=== PATIENT | male | born 1955 | race Caucasian/White ===

== ENCOUNTER 2019-04-09 13:09 | Inpatient (IN) ==
[2019-04-09] MEDS ORDERED: NS 1,000 ML IV ONE ×2 (13:41→14:22)
--- NOTE | 2019-04-09 13:52 | Diag Imaging Result Doc PS360 ---
EXAM: CHEST-1 VIEW HISTORY: positive sepsis screen TECHNIQUE: Single view COMPARISON: 06/05/2017 FINDINGS: The lungs are well expanded. The heart is not enlarged. The vessels are not distended. There are no infiltrates. No effusion identified. IMPRESSION: No pneumonia Electronically signed by Denton Woodall 04/09/2019 1:50 PM
[2019-04-09 13:57] LABS: URINE SOURCE CLEAN CATCH
[2019-04-09 14:04] LABS: BILIRUBIN URINE NEGATIVE (NEGATIVE); BLOOD URINE NEGATIVE (NEGATIVE); COLOR YELLOW; GLUCOSE URINE NEGATIVE (NEGATIVE); KETONE URINE NEGATIVE (NEGATIVE); LEUKOCYTES URINE NEGATIVE (NEGATIVE); NITRITE URINE NEGATIVE (NEGATIVE); PROTEIN URINE NEGATIVE (NEGATIVE); SP GRAVITY URINE 1.018; TURBIDITY URINE CLEAR (CLEAR); UR EPITHELIAL CELLS <10 /HPF (<10); URINE BACTERIA NEGATIVE /HPF; URINE RBC <10 /HPF (<10); URINE WBC <10 /HPF (<10); UROBILINOGEN URINE NORMAL (NORMAL)
[2019-04-09 14:05] LABS: INR 1.06
[2019-04-09 14:06] LABS: BASO# 0.05 X1000 (0.0-0.2); BASO% 0.3 % (0.0-0.8); EOS# 8.91 X1000 (0.0-0.7); EOS% 45.1 % (0.0-10.0); HEMATOCRIT 44.6 % (42.0-52.0); HEMOGLOBIN 14.4 g/dL (14.0-18.0); IMM GRAN# 0.16 X1000 (0.0-0.04); IMM GRAN% 0.8 % (0.0-0.5); LYMPH% 11.6 % (20.5-51.1); MCH 30.3 PG (27-31); MCHC 32.3 g/dL (33-37); MCV 93.7 FL (81-99); MONO# 1.02 X1000 (0.11-0.59); MONO% 5.2 % (1.7-9.3); MPV 9.9 FL (7.4-10.4); NEUT# 7.31 X1000 (1.4-6.5); PLT 277 X1000 (130-400); PTT 26.8 Seconds (22.3-41.8); RBC 4.76 XMIL (4.7-6.1); RDW 13.3 % (11.5-14.5); WBC 19.75 X1000 (4.8-10.8)
[2019-04-09 14:29] LABS: EOS 42 % (1-10); LYMPHS 18 % (21-51); MONO 1 % (1-9); NRBC 1 % (0-0); SEGS 39 % (42-75)
[2019-04-09 14:36] LABS: AGAP 12; ALB/GLOB RATIO 1.4; ALBUMIN 3.9 g/dL (3.5-5.0); ALKALINE PHOSPHATASE 74 U/L (32-122); BUN 16 mg/dL (8-22); CALCIUM 9.1 mg/dL (8.8-10.2); CHLORIDE 101 mmol/L (98-107); CK PROFILE 60 U/L (24-204); COSMO 278; CREATININE 0.9 mg/dL (0.7-1.2); ESTIMATED GFR > 60; GLUCOSE 88 mg/dL (70-104); GOT 14 U/L (10-34); GPT 18 U/L (10-44); SODIUM 139 mmol/L (136-145); TCO2 26 mmol/L (25-35); TOTAL BILIRUBIN 0.36 mg/dL (0.20-1.00); TOTAL PROTEIN 6.7 g/dL (6.3-8.3)
--- NOTE | 2019-04-09 16:10 | Diag Imaging Result Doc PS360 ---
EXAM: CT ANGIOGRM PULMONARY ARTERIES HISTORY: chest pain TECHNIQUE: CT chest with intravenous contrast. Pulmonary arterial protocol with MIP images. COMPARISON: None. FINDINGS: Normal opacification of the pulmonary arteries and their branches. No aortic aneurysm or dissection. No cardiomegaly. Tiny pericardial effusion. Trace left pleural fluid. Scattered small and mildly prominent mediastinal and hilar nodes. There are scattered tiny patchy infiltrates bilaterally. Scattered granuloma. IMPRESSION: 1.No pulmonary emboli 2.Tiny patchy infiltrates 3.Small pericardial effusion and trace left effusion This exam was performed using automated exposure control, adjustment of mA or kV according to patient size, and/or use of iterative reconstruction technique. Electronically signed by Denton Woodall 04/09/2019 4:08 PM
--- NOTE | 2019-04-09 16:15 | EKG Report ---
Test Performed on : 04/09/2019 2:11:38 PM Test Reason : chest pain Blood Pressure : / mmHG Vent. Rate : 071 BPM Atrial Rate : 071 BPM P-R Int : 146 ms QRS Dur : 106 ms QT Int : 412 ms P-R-T Axes : 004 078 035 degrees QTc Int : 447 ms Normal sinus rhythm. Cannot rule out Anterior infarct , age undetermined Abnormal ECG No previous ECGs available Unconfirmed Result
--- NOTE | 2019-04-09 16:52 | PROVIDER DOCUMENTATION ---
This chart was entered by Irais Sotelo Scribe, acting as scribe for Case Cook DO. HPI-Respiratory General - General Chief Complaint: SEPSIS ALERT - D Stated Complaint: PNEUMONIA Time Seen by Provider: 04/09/19 13:22 Source: patient, family () Allergies/Adverse Reactions: Patient Allergies Allergy/AdvReac Type Severity Reaction Status Date / Time Penicillins Allergy RASH Verified 04/09/19 14:52 Home Medications: Home Medication List Medication Instructions Recorded Confirmed Last Taken Type Benzonatate 1 cap PO Q4H 04/09/19 04/09/19 Unknown History Cyanocobalamin/FA/Pyridoxine 1 ea PO DAILY 04/09/19 04/09/19 Unknown History [Foltx] Doxycycline Hyclate 100 mg PO BID 04/09/19 04/09/19 Unknown History Fluticasone Propionate 1 spr INTRANASAL DAILY 04/09/19 04/09/19 Unknown History Fluticasone/Umeclidin/Vilanter 1 ea INHALATION DAILY 04/09/19 04/09/19 Unknown History [Trelekristi Ellipta 100-62.5-25] Levofloxacin [Levaquin] 500 mg PO DAILY 04/09/19 04/09/19 Unknown History Magnesium Oxide [Magnesium] 500 mg PO DAILY 04/09/19 04/09/19 Unknown History Montelukast [Singulair] 10 mg PO DAILY 04/09/19 04/09/19 Unknown History Omeprazole 40 mg PO BID 04/09/19 04/09/19 Unknown History - History of Present Illness-Resp Nature of Presenting Problem: Pt is a 63 yowm brought into the ED by his for worsening symptoms of his pneumonia. Pt was diagnosed and treated for pneumonia and after the "shots wore off" he is feeling worse than before. Pt is complaining of cough, sinus drainage, pain in chest, dizziness, and upset stomach. Pt is alert and nontoxic in appearance. Quality of Pain: reports: pressure (upper chest) Onset/Duration: reports: 2 days ago Timing: reports: still present, getting worse (Pt states that when the shots wore off, he has gotten worse.) Cough Quality/Degree: reports: productive cough Episode Frequency: frequent episodes Current Respiratory Medication Therapy: Initiated see nurses note, Initiated albuterol/atrovent inhale Modifying Factors: improves with: albuterol inhaler. worse with: coughing Associated Symptoms: reports: chest pain/soreness (upper), cough, dizziness, nasal drainage, shortness of breath. denies: headache Similar Symptoms Previously?: Yes Recently seen or treated by another doctor?: Yes ( at PCP) Review of Systems - Adult - REVIEW OF SYSTEMS - ADULT Constitutional: reports: no symptoms reported Eyes: reports: no symptoms reported Ears, Nose, Mouth & Throat: reports: no symptoms reported Cardiovascular: reports: see HPI, chest pain. denies: edema, syncope Respiratory: reports: cough, shortness of breath Gastrointestinal: reports: abdominal pain (epigastric, high right under ribs), vomiting Genitourinary: reports: no symptoms reported Musculoskeletal: reports: no symptoms reported Integumentary: reports: no symptoms reported Neurological: reports: see HPI, dizziness/vertigo. denies: syncope Psychiatric: reports: no symptoms reported Endocrine: reports: no symptoms reported Hematologic/Lymphatic: reports: no symptoms reported Allergic/Immunologic: reports: no symptoms reported All Other Systems: Reviewed and Negative Past History - Adult - PAST MEDICAL HISTORY-ADULT Review of Records: reports: Old Records Reviewed, Nursing Assessment Review, Medications Reviewed, Social history reviewed & non-contributory. Major Childhood Illnesses: reports: denies history Cardiovascular: reports: denies history Respiratory: reports: denies history Gastrointestinal: reports: denies history Obstetrical/Gynecological: reports: denies history Genitourinary: reports: denies history Musculoskeletal: reports: denies history Neurological: reports: denies history Psychiatric: reports: denies history Endocrine/Immune: reports: denies history Other Conditions: reports: denies history - PRIOR SURGERIES/PROCEDURES Surgical/Procedure History: reports: reviewed, not pertinent, cholecystectomy - IMMUNIZATION STATUS Childhood Immunizations: See Nurse Assessment Flu Vaccine: See Nurse Assessment - FAMILY HISTORY Family History: reviewed, not pertinent - SOCIAL HISTORY Smoking: denies Substance Use: denies Living Situation: family () Physical Exam-General - PHYSICAL EXAM-ADULT Initial Vital Signs Reviewed: Yes (HR 92, Resp 28, O2 91 RA) - CONSTITUTIONAL General Appearance: alert, no apparent distress - EYES Eyes: PERRL/EOMI - HEAD, EARS, NOSE, MOUTH & THROAT HENMT: normal ENT inspection, other (mouth dry) - NECK Neck: non-tender, full range of motion - RESPIRATORY Respiratory: crackles (at bases) - CARDIOVASCULAR Cardiovascular: no edema, tachycardia - GASTROINTESTINAL (ABDOMEN) Abdominal Exam: normal bowel sounds, non tender, soft - MUSCULOSKELETAL Back Exam: no CVA tenderness, no vertebral tenderness Extremity: non-tender, normal gait - SKIN Integumentary: normal color, normal turgor, warm/dry - PSYCHIATRIC Psych/Mental Status: normal mood/affect, normal thought content, normal thought process, oriented x 3 Progress - PLAN OF CARE/RESULTS Progress/Plan/Lab Results: Vital Signs - 8 hr 04/09/19 13:14 04/09/19 13:31 04/09/19 15:00 Temperature 97.8 F Pulse Rate 92 H 82 73 Respiratory Rate 28 H 21 21 Blood Pressure 128/88 137/86 O2 Sat by Pulse Oximetry 91 L 92 L 95 04/09/19 15:49 04/09/19 16:02 Temperature Pulse Rate 68 67 Respiratory Rate 18 21 Blood Pressure 125/80 118/75 O2 Sat by Pulse Oximetry 92 L 94 L Laboratory Results - last 24 hr 04/09/19 04/09/19 04/09/19 13:45 13:45 13:45 WBC 19.75 H RBC 4.76 Hgb 14.4 Hct 44.6 MCV 93.7 MCH 30.3 MCHC 32.3 L RDW Std Deviation 13.3 Plt Count 277 MPV 9.9 Immature Gran % (Auto) 0.8 H Neut % (Auto) 37.0 L Lymph % (Auto) 11.6 L [place] % (Auto) 5.2 Eos % (Auto) 45.1 H Baso % (Auto) 0.3 Immature Gran # (Auto) 0.16 H Neut # (Auto) 7.31 H Lymph # (Auto) 2.30 [place] # (Auto) 1.02 H Eos # (Auto) 8.91 H Baso # (Auto) 0.05 Segmented Neutrophils 39 L Lymphocytes 18 L Monocytes 1 Eosinophils 42 H Nucleated RBCs 1 H Pathologist Review PT INR PTT (Actin FS) Sodium 139 Potassium 4.0 Chloride 101 Carbon Dioxide 26 Anion Gap 12 BUN 16 Creatinine 0.9 Estimated GFR/1.73 m2 > 60 BUN/Creatinine Ratio 18 Glucose 88 Calculated Osmolality 278 Calcium 9.1 Total Bilirubin 0.36 AST 14 ALT 18 Alkaline Phosphatase 74 Creatine Kinase 60 Troponin T Total Protein 6.7 Albumin 3.9 Globulin 2.8 Albumin/Globulin Ratio 1.4 Plasma Lactate 0.7 Urine Source Urine Color Urine Turbidity Urine pH Ur Specific [place] Urine Protein Ur Glucose (Stick) Ur Ketones (Stick) Urine Blood Urine Nitrite Urine Bilirubin Urobilinogen Dipstick Urine Leukocytes Urine WBC (Auto) Urine RBC (Auto) U Epithel Cells (Auto) Urine Bacteria (Auto) 04/09/19 04/09/19 04/09/19 13:45 13:45 13:45 WBC RBC Hgb Hct MCV MCH MCHC RDW Std Deviation Plt Count MPV Immature Gran % (Auto) Neut % (Auto) Lymph % (Auto) [place] % (Auto) Eos % (Auto) Baso % (Auto) Immature Gran # (Auto) Neut # (Auto) Lymph # (Auto) [place] # (Auto) Eos # (Auto) Baso # (Auto) Segmented Neutrophils Lymphocytes Monocytes Eosinophils Nucleated RBCs Pathologist Review PT 14.0 INR 1.06 PTT (Actin FS) 26.8 Sodium Potassium Chloride Carbon Dioxide Anion Gap BUN Creatinine Estimated GFR/1.73 m2 BUN/Creatinine Ratio Glucose Calculated Osmolality Calcium Total Bilirubin AST ALT Alkaline Phosphatase Creatine Kinase Troponin T < 0.010 Total Protein Albumin Globulin Albumin/Globulin Ratio Plasma Lactate Urine Source CLEAN CATCH Urine Color YELLOW Urine Turbidity CLEAR Urine pH 6.0 Ur Specific [place] 1.018 Urine Protein NEGATIVE Ur Glucose (Stick) NEGATIVE Ur Ketones (Stick) NEGATIVE Urine Blood NEGATIVE Urine Nitrite NEGATIVE Urine Bilirubin NEGATIVE Urobilinogen Dipstick NORMAL Urine Leukocytes NEGATIVE Urine WBC (Auto) <10 Urine RBC (Auto) <10 U Epithel Cells (Auto) <10 Urine Bacteria (Auto) NEGATIVE Orders Category Date Time Status Cardiac Monitoring DIRECTED Care 04/09/19 13:16 Active IV Insertion ORDERED Care 04/09/19 13:16 Completed Notify MD of + Sepsis Screen NOW Care 04/09/19 13:16 Active Notify Physician As Ordered Care 04/09/19 13:16 Active CHEST-1 VIEW [RAD] Stat Exams 04/09/19 13:16 Completed CTA [CT ANGIOGRM PULMONARY ARTERIES] [CT] Stat Exams 04/09/19 14:31 Completed BLOOD CULTURE [BLDCUL] Stat Lab 04/09/19 14:05 Results CBC WITH DIFF [HEME] Stat Lab 04/09/19 13:45 Completed CK PROFILE [SP CHEM] Stat Lab 04/09/19 13:45 Completed COMPREHENSIVE METABOLIC PANEL [CHEM] Stat Lab 04/09/19 13:45 Completed LACTATE, PLASMA [CHEM] Lab 04/09/19 13:45 Completed LACTATE, PLASMA [CHEM] Lab 04/09/19 16:30 Uncollected LACTATE, PLASMA [CHEM] Lab 04/09/19 19:30 Uncollected PROTIME WITH INR [COAG] Stat Lab 04/09/19 13:45 Completed PTT [COAG] Stat Lab 04/09/19 13:45 Completed TROPONIN T Stat Lab 04/09/19 13:45 Completed URINALYSIS W/POSS RFLX CULT [URINALYSIS] Stat Lab 04/09/19 13:45 Completed 0.9% Sodium Chloride Inj [Ns] 1,000 ml Med 04/09/19 13:41 Discontinued IV 999 mls/hr 0.9% Sodium Chloride Inj [Ns] 1,000 ml Med 04/09/19 14:22 Discontinued IV 999 mls/hr Oxygen Device Stat Oth 04/09/19 13:16 Active EKG [EKG] Stat Ther 04/09/19 13:40 Draft Transfer/Admit Order [TRANSFER] Routine Transfer 04/09/19 16:35 Ordered Result Diagrams: 04/09/19 13:45 04/09/19 13:45 - EKG 1 Time of EKG reading by physician:: 14:12 EKG Read and Signed by:: Case Cook EKG Interpretation (*Must complete 3 of following elements*): Abnormal Rate: 71 Rhythm: NSR [place]: normal QRS: normal IA Interval: normal ST Wave: normal Comments: Cannot rule out Anterior infarct, age undetermined - XRAY 1 XRAY Study: Chest Impression: See EMR Report (EXAM: CHEST-1 VIEW HISTORY: positive sepsis screen TECHNIQUE: Single view COMPARISON: 06/05/2017 FINDINGS: The lungs are well expanded. The heart is not enlarged. The vessels are not distended. There are no infiltrates. No effusion identified. IMPRESSION: No pneumonia Electronically signed by Denton Woodall 04/09/2019 1:50 PM 04/09/19 1350 Interpreting Physician: Denton Woodall MD Dictated Date/Time: 04/09/19 1340 cc: Case Cook DO; Zeus Leigh MD) - CT/MRI 1 CT Study: Angiogram Impression: See EMR Report (EXAM: CT ANGIOGRM PULMONARY ARTERIES HISTORY: chest pain TECHNIQUE: CT chest with intravenous contrast. Pulmonary arterial protocol with MIP images. COMPARISON: None. FINDINGS: Normal opacification of the pulmonary arteries and their branches. No aortic aneurysm or dissection. No cardiomegaly. Tiny pericardial effusion. Trace left pleural fluid. Scattered small and mildly prominent mediastinal and hilar nodes. There are scattered tiny patchy infiltrates bilaterally. Scattered granuloma. IMPRESSION: 1.No pulmonary emboli 2.Tiny patchy infiltrates 3.Small pericardial effusion and trace left effusion This exam was performed using automated exposure control, adjustment of mA or kV according to patient size, and/or use of iterative reconstruction technique. Electronically signed by Denton Woodall 04/09/2019 4:08 PM 04/09/19 1601 Interpreting Physician: Denton Woodall MD Dictated Date/Time: 04/09/19 1606 cc: Case Cook DO; Zeus Leigh MD) - CONSULTS/PCP/HOSPITALIST Notification #1 *Consult/PCP/Hospitalist*: Rosemary Time Discussed: 16:33 (admit to Dr. Morton) Consult Disposition: Will see in ED Departure - Departure Date of Disposition Decision: 04/09/19 Time of Disposition Decision: 16:50 DIAGNOSIS: Pneumonia Qualifiers: Pneumonia type: due to unspecified organism Laterality: bilateral Lung location: lower lobe of lung Qualified Code(s): J18.1 - Lobar pneumonia, unspecified organism Disposition: ADMITTED INPATIENT 09 Certified Medical Emergency: Emergent Condition: Stable Referrals and Follow-Ups: Zeus Leigh MD [Primary Care Provider] - - Critical Care Note This patient required my direct & personal management of CC.: Yes Attestation - Physician/ DANIKA Attestation Patient care was provided by Advanced Practice Provider:: No The physician spent face to face time with patient:: Yes Advanced Practice Provider documentation review:: Supervising physician onsite and consulted in the evaluation and care of this patient. The physician did have a face to face encounter with the patient. This chart was documented by the indicated scribe, (Irais Sotelo Scribe) and accurately reflects the services I performed and decisions made by , Joyce,Case E., DO, as attested by the provider's signature.
[2019-04-09] MEDS ORDERED: ZOFRAN IV PRN (18:30)
[2019-04-09] MEDS ORDERED: ROCEPHIN 1 GM in NS 50 ML IV SCH (18:30)
[2019-04-09] MEDS ORDERED: ZITHROMAX 500 MG/NS 500 MG/250 ML IVPB IV SCH (18:30)
[2019-04-09] MEDS ORDERED: TYLENOL PO PRN (18:30)
[2019-04-09] MEDS ORDERED: DUONEB (A & A) INH SCH (19:30)
[2019-04-09] MEDS: ROCEPHIN 1 GM in NS 50 ML IV SCH (21:10)
[2019-04-09] MEDS: ZITHROMAX PO SCH (21:10)
[2019-04-09] MEDS: SOLU-MEDROL IV SCH (21:10)
[2019-04-09] MEDS: NS 1,000 ML IV SCH (21:10)
[2019-04-09] MEDS: TESSALON PO SCH (21:11)
[2019-04-09] MEDS: PRILOSEC PO SCH (21:11)
--- NOTE | 2019-04-09 21:24 | HISTORY AND PHYSICAL ---
PRIMARY CARE PHYSICIAN: Dr. Leigh. CHIEF COMPLAINT: Was diagnosed with pneumonia this past by his primary care physician, placed on antibiotics and does not feel that he has improved. Still having a productive cough, wheezing, shortness of breath, sinus drainage, so he came to the emergency room for evaluation. HISTORY OF PRESENTING ILLNESS: This is a 63-year-old male who presents to [facility] stating that he was diagnosed on this past with a pneumonia and was placed on antibiotics has been taking the antibiotics as prescribed but is feeling worse. Continues to have a productive cough, sinus drainage, shortness of breath, wheezing. His O2 saturation on arrival was 91%. His white blood cell count was 19.75. His chest x-ray showed no pneumonia but we did a pulmonary arteriogram that showed no pulmonary emboli and tiny scattered patchy infiltrates bilaterally so he will be admitted for further evaluation and treatment for failed outpatient treatment. PAST MEDICAL HISTORY: None. PAST SURGICAL HISTORY: Cholecystectomy. He has also had a right knee ACL repair and lymph node removal to his right groin. FAMILY HISTORY: Reviewed and noncontributory. SOCIAL HISTORY: Currently lives with his . Denies any tobacco, alcohol or illicit drug use. ALLERGIES: To penicillin. HOME MEDICATIONS: He takes benzonatate 100 mg p.o. q.4 hours, Foltx 1 p.o. daily, doxycycline 100 mg p.o. b.i.d. will be held, fluconazole 1 spray nasally daily, Trelegy Ellipta 100/62.5/25 one inhalation daily, Levaquin 500 mg p.o. daily will be held, magnesium oxide 500 mg p.o. daily, Singulair 10 mg p.o. daily and omeprazole 40 mg p.o. b.i.d. LABORATORY DATA: Showed a white blood cell count of 19.75, hemoglobin 14.4, hematocrit 44.6, platelets 277,000, PT and INR of 14 and 1.06. Sodium 139, potassium 4, chloride 101, CO2 26, BUN of 16, creatinine 0.9, glucose 88. Cardiac enzymes were negative. Plasma lactate of 0.7. Urinalysis was negative. Chest x-ray showed no pneumonia. Pulmonary arteriogram showed no pulmonary emboli, tiny patchy infiltrates bilaterally and small pericardial effusion and trace left effusion. REVIEW OF SYSTEMS: He denied any fever. He has had chills, productive cough, wheezing, sinus drainage, dizziness, shortness of breath, denied any abdominal pain, constipation, diarrhea, burning or hurting with urination. PHYSICAL EXAMINATION: On arrival he had a temperature of 97.8 degrees, pulse 92, respirations 28, blood pressure 128/88, saturating 91% on room air, did drop to 89% on room air when I was in the room, placed him on O2 via nasal cannula and he came up to 93% on the 2 L via nasal cannula. HEENT: Normocephalic, atraumatic. Normal ENT inspection. Oropharynx and nares are clear. Pupils are equal, round, reactive to light, accommodation. Extraocular movements are intact. NECK: Normal inspection, normal range of motion. LUNGS: With wheezing and crackles throughout posterior lung hdez that are scattered. Equal lung expansion, chest wall movement noted. O2 via nasal cannula currently in use. HEART: Regular rate and rhythm. No murmurs, rubs, or gallops. ABDOMEN: Soft, nontender, nondistended. Bowel sounds are present x4 quadrants. MUSCULOSKELETAL: He has 5/5 strength x4 extremities. NEUROLOGICAL: The cranial nerves 2-12 appear grossly intact. ASSESSMENT: 1. Bilateral patchy pneumonia with failed outpatient treatment. 2. Leukocytosis. 3. Dyspnea. OUR PLAN: He will be admitted to the medical unit placed on telemetry, incentive spirometry, turn, cough and deep breathe q.2, will give him Rocephin 1 gram IV q.24, azithromycin 500 IV q.24, DuoNeb q.4 hours, normal saline at 75 mL an hour, recheck CBC, BMP in the a.m., place on SCDs for DVT prophylaxis, further orders after seen by attending. Dictated by JUSTICE Mcgee for Rivas Morton MD cc: JUSTICE Mcgee MD Dr. Gillespie I agree with most components of history, physical, assessment and plan. A separate addendum has been dictated. [facility]
--- NOTE | 2019-04-09 22:48 | PROGRESS NOTE ---
DATE: 04/09/2019 INTERVAL HISTORY: Mr. High is a 63-year-old man with past medical history of chronic rhinosinusitis, chronic venous insufficiency, status post surgery, distant smoking history where he smoked only for 5 years and quit 40 years ago, sinus surgery in the past, cholecystectomy, who comes in with chief complaints of worsening cough with shortness of breath. Apparently, patient has been having symptoms of sinus drainage causing cough since about the last 2 months and he has been put on at least 4 to 5 antibiotic courses without any improvement. During this period he had seen his regular physician, ENT physician and senior energy market coordinator and he has been on Trilogy inhalers, multiple courses of antibiotics, fluticasone nasal spray without any improvement. His cough and shortness of breath started getting significantly worse in the last 3 days, so he decided to come to the emergency room. In the emergency room, he was found to have leukocytosis with pronounced eosinophilia. Normal electrolytes. SUBJECTIVE: He denies known history of asthma. He states he was tested for flu 4 days ago, does not know the result. He also has chronic lower extremity rash. PHYSICAL EXAMINATION: Vital signs: Temperature of 97.8 degrees, pulse 67, respiratory 18, blood pressure 125/80, he is saturating 92% on 2 L nasal cannula. HEENT: He is not in acute distress. Oral cavity is moist. No tonsillitis or pharyngeal exudate. Nasal cavity has edematous, pale appearing nasal mucosa over turbinates. Lungs: He has bilateral end-expiratory wheezes and inspiratory crackles. Cardiovascular: S1, S2 normal. No murmur or gallop. Abdomen: Obese, soft, nontender. Extremities: No lower extremity edema. He has bilateral varicosities. He also has old appearing rash in bilateral lower extremities. The patient states that has been present for years, more pronounced on right lower extremity. LABS: Suggestive of leukocytosis with 45% eosinophilia. Normal electrolytes. IMAGING: Pulmonary arteriogram performed had no pulmonary emboli, tiny patchy infiltrate, small pericardial effusion, trace left effusion. ASSESSMENT AND PLAN: Bilateral lung infiltrate with history of chronic rhinosinusitis with peripheral eosinophilia. On exam, patient also has wheeze, though he does not have a known diagnosis of asthma. Differential includes eosinophilic pneumonia, eosinophilic granulomatosis with polyangiitis, bacterial pneumonia, allergic bronchopulmonary aspergillosis, others. I will get antinuclear antibody, ANCA, urine Streptococcus Legionella antigen, sputum culture. I will start him on intravenous ceftriaxone, azithromycin, inhaled bronchodilators, intravenous steroids and follow up the results. I will admit patient to the hospital and will consider consulting Pulmonology tomorrow. Plan of care discussed with the patient and his at bedside, their questions been answered. cc: Rivas Morton MD
[2019-04-09] MEDS: ALBUTEROL NEB INH SCH (23:21)
[2019-04-10] MEDS: TESSALON PO SCH ×6 (00:42→21:33)
[2019-04-10 07:34] LABS: BASO# 0.02 X1000 (0.0-0.2); BASO% 0.2 % (0.0-0.8); EOS% 5.8 % (0.0-10.0); HEMATOCRIT 43.9 % (42.0-52.0); HEMOGLOBIN 14.1 g/dL (14.0-18.0); IMM GRAN# 0.13 X1000 (0.0-0.04); IMM GRAN% 1.3 % (0.0-0.5); LYMPH# 1.22 X1000 (1.2-3.4); LYMPH% 11.8 % (20.5-51.1); MCH 30.3 PG (27-31); MCHC 32.1 g/dL (33-37); MCV 94.2 FL (81-99); MONO# 0.43 X1000 (0.11-0.59); MONO% 4.2 % (1.7-9.3); MPV 9.8 FL (7.4-10.4); NEUT# 7.94 X1000 (1.4-6.5); NEUT% 76.7 % (42.2-75.2); PLT 274 X1000 (130-400); RBC 4.66 XMIL (4.7-6.1); RDW 13.2 % (11.5-14.5); WBC 10.34 X1000 (4.8-10.8)
[2019-04-10 07:49] LABS: AGAP 14; BUN 12 mg/dL (8-22); CALCIUM 9.2 mg/dL (8.8-10.2); CHLORIDE 102 mmol/L (98-107); COSMO 283; CREATININE 0.8 mg/dL (0.7-1.2); ESTIMATED GFR > 60; GLUCOSE 131 mg/dL (70-104); POTASSIUM 4.6 mmol/L (3.5-5.1); SODIUM 141 mmol/L (136-145); TCO2 25 mmol/L (25-35)
[2019-04-10] MEDS: ALBUTEROL NEB INH SCH ×3 (08:34→15:31)
[2019-04-10] MEDS ORDERED: MAGNESIUM OXIDE 500 MG PO SCH (09:00)
[2019-04-10] MEDS: ZITHROMAX PO SCH (10:09)
[2019-04-10] MEDS: SINGULAIR PO SCH (10:09)
[2019-04-10] MEDS: FOLTX PO SCH (10:09)
[2019-04-10] MEDS: PRILOSEC PO SCH ×2 (10:09→21:33)
[2019-04-10] MEDS: NS 1,000 ML IV SCH (10:20)
--- NOTE | 2019-04-10 12:43 | PROVIDER PROGRESS NOTE ---
Progress Note Pulmonary additional note: The CT scan findings are minimal. I understand the elevation of eosinophils, however doubt eosinophilic pneumonia. Future course will determine that further.
[2019-04-10] MEDS: FLONASE NAS SCH (12:51)
--- NOTE | 2019-04-10 14:54 | PROGRESS NOTE ---
DATE: 04/10/2019 INTERVAL HISTORY: No acute events overnight. SUBJECTIVE: Mr. High is feeling better. He says his sinus congestion and cough are better. We discussed about improving lab findings, exam findings, and I answered all of his questions. VITAL SIGNS: Temperature of 98.3 degrees, pulse 80, respiratory rate 15, blood pressure 140/90, saturating 95% on 2 L nasal cannula. PHYSICAL EXAMINATION: General: Not in acute distress. HEENT: Oral cavity is moist. Lungs: Air entry bilaterally equal. No wheeze or rhonchi. Inspiratory crackles bilateral infrascapular region. Cardiovascular: S1, S2 normal. Regular. No murmur, rub, or gallop. Abdomen: Soft, nontender. Extremities: No lower extremity edema. He has bilateral superficial venous varicosities of the legs. He also has a rash affecting bilateral lower extremities, more pronounced on the right side. LABS: Resolution of leukocytosis. Improvement in eosinophil count from 45 to 5%. Normal hemoglobin. Normal platelet count. Normal electrolytes. MICROBIOLOGY: Blood culture is in the lab. Influenza screen is not back yet. IMAGING: No new imaging. ASSESSMENT AND PLAN: 1. Bilateral lung infiltrate with history of chronic rhinosinusitis with peripheral eosinophilia. Continue intravenous ceftriaxone, azithromycin, and intravenous steroids. I will follow up with final blood culture, sputum culture, ANCA, and urine antigen results. Pulmonology team recommendations appreciated. 2. Wheezing on examination and chronic rhinosinusitis. Continue inhaled bronchodilators, inhaled steroids, intravenous steroids, home montelukast. 3. Bilateral lower extremity rash. He is already on intravenous steroids. He previously had a biopsy of the skin lesion of his right foot which according to him suggested eczema; the details of which are not available at the moment. 4. Disposition. I will monitor the patient on the medical floor. Plan of care discussed with him. His questions have been answered. cc: Rivas Morton MD
[2019-04-10] MEDS: ROCEPHIN 1 GM in NS 50 ML IV SCH (17:15)
[2019-04-10] MEDS: SOLU-MEDROL IV SCH (17:15)
--- NOTE | 2019-04-10 18:51 | CONSULTATION ---
DATE OF CONSULTATION: 04/10/2019 REQUESTING PROVIDER: Dr. Rivas Morton. REASON FOR CONSULTATION: Chronic rhinosinusitis and eosinophilia rash. HISTORY OF PRESENT ILLNESS: This is a 63-year-old male with outpatient recently diagnosed pneumonia. He has no significant medical history. He presented to the ER yesterday morning with worsening symptoms of pneumonia despite of ongoing outpatient antibiotic therapy. Initial CT angiogram pulmonary arteries revealed normal opacities of the pulmonary arteries and their branches, tiny pericardial effusion and chest left pleural fluid, scattered all small and mildly prominent mediastinal and hilar nodes with scattered tiny patchy infiltrates bilaterally and scattered granuloma, so he has been admitted to the medical floor for further evaluation and management. Patient currently is sitting on the edge of the bed with no acute distress noted. He is on nasal cannula at 3 L. He reports intermittent severe coughing spell about every three to four hours with large amount of thin sputum which makes patient feel choking at times, but patient reported after that he feels a lot better. He had no fever all night and his oxygen saturation stayed in the low 90s. He reports sinus drainage and some chest soreness, dizziness, but no fever, chills, sore throat, wheezing, nausea, vomiting, bowel habit change, urination discomfort or palpitation. He did not notice any weight change recently. He did have some headache at times, which is worsening with cough. PAST MEDICAL AND SURGICAL HISTORY: Status post cholecystectomy, right knee ACL repair and right groin lymph node removal. SOCIAL HISTORY: Patient lives at home with his . He has a remote smoking history back to 40 years ago for about five years. He denies any history of alcohol or illicit drug use. The patient reported that he lives in a house with water leaking at the roof at times and both him and his have chronic sinus issues for over three years. They are not sure if there is any mold inside the house. They did see some green or faye colored stuff growing in some places inside the house. FAMILY HISTORY: Unknown. ALLERGIES: Penicillins. REVIEW OF SYSTEMS: A 10-point review of systems was conducted and the pertinent is listed within the HPI, otherwise noncontributory. PHYSICAL EXAMINATION: Vital Signs: Temperature 97.9, blood pressure 140/82, pulse 72, respiratory rate 16, oxygen saturation 93% on nasal cannula at 3 L. General: Obese. Sitting on the edge of the bed with no acute distress noted. HEENT: Atraumatic, normocephalic. Trachea midline. Mucosa pink and moist. Respiratory: Even and unlabored. Symmetrical excursion. Auscultation revealed diminished breathing sounds bibasilarly and only inspiratory crackles bilaterally. No wheezing noted at this time. Cardiovascular: Regular rate and rhythm. Gastrointestinal: Soft, mildly distended, nontender. Normoactive bowel sounds in all four quadrants. Extremities: No pedal edema. No cyanosis. Has significant varicosities on BLE. Has one spot of eczema around right foot. Has several scratches on the bilateral lower extremities. Dorsalis pedis diminished bilaterally. Neurologic: Alert oriented x4. Speech fluent. Follows commands. LAB DATA: White blood cells 10.34, hemoglobin 14.1, hematocrit 43.9, platelet 274,000. Sodium 141, potassium 4.6, chloride 102, carbon dioxide 25, BUN 12, creatinine 0.8, glucose 131. IMAGING DATA: See CT PA results on HPI. ASSESSMENT: This is a 63-year-old male with no significant medical history except recently outpatient diagnosed pneumonia. He has been admitted to the medical floor since yesterday with bilateral patchy pneumonia with failed outpatient treatment. 1. Acute hypoxic respiratory failure. 2. Bilateral patchy pneumonia. 3. Small pericardial effusion and trace left effusion. 4. Rule out pulmonary emboli. PLAN: 1. Continue supplemental oxygen as needed. 2. Continue antibiotic, steroid, and bronchodilators. 3. Follow up with sputum culture and blood culture. Check ABG and chest x-ray if indicated. 4. Further recommendations pending hospital course. Thank you for the courtesy of this consult. Dictated by JUSTICE Ibarra for Satya Cullen MD cc: JUSTICE Ibarra MD [facility]
[2019-04-11] MEDS: TESSALON PO SCH ×6 (00:13→20:44)
[2019-04-11] MEDS: FLONASE NAS SCH (08:49)
[2019-04-11] MEDS: NON-FORMULARY MED (Fluticasone/Umeclidin/Vilanter [Trelegy Ellipta 100-62.5-25] 0 EA) inhalation SCH ×3 (08:49→11:35)
[2019-04-11] MEDS: SINGULAIR PO SCH (08:49)
[2019-04-11] MEDS: PRILOSEC PO SCH ×2 (08:49→20:44)
[2019-04-11] MEDS: ZITHROMAX PO SCH (08:50)
[2019-04-11] MEDS: FOLTX PO SCH (08:50)
[2019-04-11] MEDS: ALBUTEROL NEB INH SCH (08:54)
[2019-04-11] MEDS: ROCEPHIN 1 GM in NS 50 ML IV SCH (17:32)
[2019-04-11] MEDS: SOLU-MEDROL IV SCH (17:32)
--- NOTE | 2019-04-11 20:02 | PROGRESS NOTE ---
DATE: 04/11/2019 INTERVAL HISTORY: No acute events overnight. SUBJECTIVE: Mr. High denies new complaints. He states he is feeling better, though intermittently he feels his sinuses are draining, irritating his throat, and it may be going inside his lungs, which makes him choke up and he has to sit up. His is at bedside. We had a long discussion about outpatient followup with pulmonology, asthma testing, pulmonary function testing, allergy testing. We discussed about pending blood tests. PHYSICAL EXAMINATION: Vital Signs: Temperature 98.3 degrees, pulse 77, respiratory rate 18, blood pressure 130/80, saturating 93%. Currently, he is on room air. PHYSICAL EXAMINATION: General: Not in any acute distress. HEENT: Oral cavity is moist. There is some congestion in soft palate because of his it looks like coughing. His nasal cavity has edematous turbinates. Lungs: Air entry bilaterally equal. No wheeze or rhonchi. He does have poor inspiratory effort. Mild crackles, infrascapular region. Cardiac: S1 and S2 normal. No murmur or gallop. Abdomen: Soft and nontender. Extremities: He has bilateral lower extremity rash, more pronounced on the right lower extremity. He previously also had surgery for varicose veins. LABS: No CBC or BMP today. ASSESSMENT AND PLAN: 1. Bilateral lung infiltrate with history of chronic rhinosinusitis with peripheral eosinophilia on presentation and bilateral lower extremity rash. Continue intravenous ceftriaxone, azithromycin, and intravenous steroids. Follow up final results of blood cultures, sputum culture, ANCA, urine antigen results. Pulmonology team recommendations appreciated. I will keep him on inhaled bronchodilators, fluticasone nasal spray, montelukast. He was previously told by a want ad supervisor that he did not have lupus. 2. Wheezing on presentation. This could be asthma, even though he was never diagnosed with it. He will need outpatient pulmonology followup. I will continue inhaled bronchodilators and intravenous steroids. 3. Bilateral lower extremity rash, currently stable. He previously had a biopsy of the rash outpatient and was told he had some kind of eczema. DISPOSITION: I am waiting for some of the blood tests including final results of the urine antigens, ANCA, YAA, and accordingly, I will anticipate discharge in next 24 hours. Plan of care discussed with him and his . Their questions have been answered. cc: Rivas Morton MD MTDD
--- NOTE | 2019-04-11 20:24 | PULMONOLOGY PROGRESS NOTE ---
DATE: 04/11/2019 SUBJECTIVE: The patient is awake, alert, and conversant. He has chronic nasal congestion. He reports he has multiple episodes of wheezing requiring antibiotics each year, frequently associated with his sinusitis. OBJECTIVE: Vital Signs: The patient has been afebrile for the last 24 hours. BP 123/80, heart rate 64, respiratory rate 18, oxygen saturation 97% on 2 L per nasal cannula. HEENT: Pupils are equal and reactive. Oropharynx is clear. Nasal passages have increased thick secretions. Neck: Supple. Chest: Reveals scattered wheezing bilaterally. Cardiac exam: S1, S2. Abdomen: Obese and soft. Extremities: Reveal trace edema. LABORATORIES: No chemistries or CBC today. IMPRESSION: A 63-year-old with: 1. Chronic rhinosinusitis. 2. Hypereosinophilia. 3. Frequent episodes of wheezing and bronchospasm. 4. Prior history of hives. 5. Acute hypoxemic respiratory failure. 6. Abnormal CT scan with pulmonary infiltrates. PLAN: 1. Continue antibiotics pending results of sputum cultures. 2. Continue steroids. Could transition to prednisone tomorrow (suggest a 30 mg daily dose with subsequent taper). 3. Check an IgE level. 4. Follow up with Pulmonary as an outpatient. He is currently being seen by Dr. Cullen and has been seen by Dr. Jae Meyer in [place] earlier this year. cc: Jordan Kothari MD
[2019-04-12] MEDS: TESSALON PO SCH ×5 (00:46→17:39)
[2019-04-12 07:39] LABS: BASO# 0.02 X1000 (0.0-0.2); BASO% 0.2 % (0.0-0.8); EOS# 0.53 X1000 (0.0-0.7); EOS% 4.3 % (0.0-10.0); HEMATOCRIT 45.4 % (42.0-52.0); HEMOGLOBIN 14.6 g/dL (14.0-18.0); IMM GRAN# 0.07 X1000 (0.0-0.04); IMM GRAN% 0.6 % (0.0-0.5); LYMPH% 12.2 % (20.5-51.1); MCH 30.4 PG (27-31); MCHC 32.2 g/dL (33-37); MCV 94.4 FL (81-99); MONO# 0.81 X1000 (0.11-0.59); MONO% 6.6 % (1.7-9.3); MPV 9.9 FL (7.4-10.4); NEUT# 9.32 X1000 (1.4-6.5); NEUT% 76.1 % (42.2-75.2); PLT 308 X1000 (130-400); RBC 4.81 XMIL (4.7-6.1); RDW 13.2 % (11.5-14.5); WBC 12.25 X1000 (4.8-10.8)
[2019-04-12 08:07] LABS: AGAP 12; BUN 18 mg/dL (8-22); CALCIUM 9.4 mg/dL (8.8-10.2); CHLORIDE 102 mmol/L (98-107); COSMO 287; CREATININE 0.8 mg/dL (0.7-1.2); ESTIMATED GFR > 60; GLUCOSE 94 mg/dL (70-104); POTASSIUM 4.6 mmol/L (3.5-5.1); SODIUM 143 mmol/L (136-145); TCO2 29 mmol/L (25-35)
[2019-04-12] MEDS: NON-FORMULARY MED (Fluticasone/Umeclidin/Vilanter [Trelegy Ellipta 100-62.5-25] 0 EA) inhalation SCH (10:07)
[2019-04-12] MEDS: FOLTX PO SCH (10:07)
[2019-04-12] MEDS: SINGULAIR PO SCH (10:07)
[2019-04-12] MEDS: PRILOSEC PO SCH ×2 (10:07→20:39)
[2019-04-12] MEDS: FLONASE NAS SCH (10:08)
[2019-04-12] MEDS: ZITHROMAX PO SCH (10:08)
[2019-04-12] MEDS: ALBUTEROL NEB INH SCH ×2 (10:54→19:41)
[2019-04-12 14:23] LABS: ANTINEUTROPHIL CYTOPLASMIC AB SEE COMMENTS
--- NOTE | 2019-04-12 17:21 | PULMONOLOGY PROGRESS NOTE ---
DATE: 04/12/2019 SUBJECTIVE: The patient is awake and alert. He is moving in his room and can go to the bathroom without difficulty. OBJECTIVE: Vital Signs: The patient is afebrile. Blood pressure 132/81, heart rate 73, respiratory rate 16, oxygen saturation 93% on room air. HEENT: Pupils are equal and reactive. Oropharynx is clear. Neck: Supple. Chest: Reveals some faint wheezing bilateral with better air flow. Cardiac exam: S1, S2. Abdomen: Obese and soft. Extremities: Without edema. LABORATORIES: Sodium 143, potassium 4.6, chloride 102, bicarbonate 29, BUN 18, creatinine 0.8. White blood count 12.25, hemoglobin 14.6, platelet count 308,000, eosinophil count is 4.3. IMPRESSIONS: A 63-year-old with: 1. Chronic rhinosinusitis. 2. Acute hypoxemic respiratory failure. 3. Asthma. 4. Abnormal CT scan with pulmonary infiltrates. RECOMMENDATIONS: 1. Consider transitioning patient to oral steroids. The patient could be discharged and followed up as an outpatient. He has previously been evaluated by Pulmonary. He will need his eosinophil counts checked as his steroids are tapered. 2. Consider transitioning patient to an oral antibiotic. 3. From a pulmonary standpoint, patient can be discharged home soon. cc: Jordan Kothari MD
[2019-04-12] MEDS: ROCEPHIN 1 GM in NS 50 ML IV SCH (17:38)
[2019-04-12] MEDS: SOLU-MEDROL IV SCH (17:42)
--- NOTE | 2019-04-12 19:16 | PROGRESS NOTE ---
DATE: 04/12/2019 SUBJECTIVE: The patient is sitting at the edge of the bed. He states that he feels much stronger. He states that his shortness of breath has improved. OBJECTIVE: Vital Signs: Temperature 97.9 degrees, blood pressure 130/85, heart rate 70, respirations 20, O2 saturation 92% on room air. General: This is an elderly male sitting at the edge of the bed in no acute distress. Heart: S1, S2 normal. Regular rate and rhythm. Lungs: Equal air entry bilaterally. No wheezing. Abdomen: Positive bowel sounds. Soft, nontender, nondistended. Extremities: No edema. No cyanosis. Neurologic: The patient is alert and oriented x3. LABORATORY DATA: White blood cell count 12, hemoglobin 14, hematocrit 45, platelets 308,000. ASSESSMENT AND PLAN: 1. Acute hypoxemic respiratory failure, improved. The patient has normal oxygen saturation on room air. 2. Pulmonary infiltrates with eosinophilia. The patient's eosinophilia has resolved. The patient is currently on steroid therapy and antibiotics. We will transition the patient to a prednisone taper. The mixed connective tissue assay is currently pending. The ANCA screen is negative. The patient will likely need to be referred to a congressional representative. 3. Chronic rhinosinusitis. Aware. The patient is followed by Dr. Mcguire as outpatient. He is scheduled to see Dr. Mcguire next month. 4. Deep vein thrombosis prophylaxis. We will start the patient on Lovenox. cc: Drea Glover MD
[2019-04-12] MEDS: LOVENOX SUBQ SCH (20:39)
[2019-04-13 07:18] LABS: HEMOGLOBIN 14.2 g/dL (14.0-18.0); MCH 30.5 PG (27-31); MCHC 32.3 g/dL (33-37); MCV 94.4 FL (81-99); MPV 9.4 FL (7.4-10.4); RBC 4.66 XMIL (4.7-6.1); RDW 13.2 % (11.5-14.5); WBC 9.98 X1000 (4.8-10.8)
[2019-04-13 08:04] LABS: AGAP 8; BUN 20 mg/dL (8-22); CALCIUM 9.1 mg/dL (8.8-10.2); CHLORIDE 99 mmol/L (98-107); COSMO 280; ESTIMATED GFR > 60; GLUCOSE 100 mg/dL (70-104); POTASSIUM 4.6 mmol/L (3.5-5.1); SODIUM 139 mmol/L (136-145); TCO2 32 mmol/L (25-35)
[2019-04-13] MEDS: FLONASE NAS SCH (08:20)
[2019-04-13] MEDS: FOLTX PO SCH (08:20)
[2019-04-13] MEDS: SINGULAIR PO SCH (08:21)
[2019-04-13] MEDS: PRILOSEC PO SCH ×2 (08:22→21:42)
[2019-04-13] MEDS: ZITHROMAX PO SCH (08:22)
[2019-04-13] MEDS: PREDNISONE PO SCH (08:22)
[2019-04-13] MEDS: NON-FORMULARY MED (Fluticasone/Umeclidin/Vilanter [Trelegy Ellipta 100-62.5-25] 0 EA) inhalation SCH (08:27)
--- NOTE | 2019-04-13 15:39 | PROGRESS NOTE ---
DATE: 04/13/2019 SUBJECTIVE: The patient is resting comfortably in bed. He has no complaints. He complains of a sinus headache. OBJECTIVE: Vital Signs: Temperature 98.1 degrees, blood pressure 124/81, heart rate 81, respirations 16, O2 saturation 94% on room air. General: This is a chronically ill-appearing elderly male sitting at the edge of the bed in no acute distress. Heart: S1, S2 normal. Regular rate and rhythm. Lungs: Equal air entry bilaterally. No wheezing. No rales. Abdomen: Positive bowel sounds. Soft, nontender, nondistended. Extremities: No edema, no cyanosis. Neurologic: The patient is alert and oriented x4. LABS: White blood cell count 9.9, hemoglobin 14, hematocrit 44, platelets 273,000. Sodium 139, potassium 4.6, chloride 99, CO2 32, BUN 20, creatinine 1, glucose 100. ASSESSMENT AND PLAN: 1. Pulmonary infiltrates with eosinophilia. We will transition the patient to oral antibiotic therapy today. The patient will be discharged on a steroid taper. We will also refer the patient to a development executive for further workup. The patient will follow up with Pulmonary as outpatient as well. 2. Chronic rhinosinusitis. The patient is scheduled to see Dr. Mcguire next month to discuss a possible surgical procedure. 3. Deep vein thrombosis prophylaxis. Continue on Lovenox. 4. Disposition. Will plan to discharge the patient home tomorrow. cc: Drea Glover MD
--- NOTE | 2019-04-13 19:52 | PULMONOLOGY PROGRESS NOTE ---
DATE: 04/13/2019 SUBJECTIVE: The patient is awake, alert, and conversant. He is on room air. He reports his breathing has improved. He continues to report some postnasal drip. OBJECTIVE: Vital Signs: The patient has been afebrile for the last 24 hours. Blood pressure 124/81, heart rate 81, respiratory rate 16, oxygen saturation 94%. HEENT: There is increased thin, clear secretions with bogginess of the nasal mucosa. Oropharynx appears clear. Neck: Supple. Chest: Reveals good air entry bilaterally. Wheezing is minimal or absent. Cardiac exam: S1, S2. Abdomen: Soft without hepatosplenomegaly. Extremities: Without edema. LABORATORIES: IgE level is markedly elevated at 3014. IMPRESSION: A 63-year-old with: 1. Chronic rhinosinusitis. 2. Acute hypoxemic respiratory failure, which has resolved. 3. Asthma. 4. Abnormal CT scan with pulmonary infiltrates. DISCUSSION: A 63-year-old with problems outlined above. The patient's total eosinophil count on admission was 8910 with 45% eosinophils. His IgE is markedly elevated. 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 The patient clearly will benefit from additional evaluation and treatment of his sinus and allergy disease. He might benefit from Dupixent, which works with eosinophilic asthma along with chronic rhinosinusitis. PLAN: 1. Initiate oral steroids. Would recommend a 3 to 4 week taper. 2. Recommend outpatient allergy/ENT followup. 3. The patient has previously been evaluated as an outpatient by Pulmonary. He can follow up with this practitioner. cc: Jordan Kothari MD
[2019-04-13] MEDS ORDERED: CHLORASEPTIC SORE THROAT LOZENGE MT PRN (21:38)
[2019-04-13] MEDS: KEFLEX PO SCH (21:42)
[2019-04-13] MEDS: LOVENOX SUBQ SCH (21:43)
[2019-04-14 07:37] LABS: HEMATOCRIT 45.8 % (42.0-52.0); HEMOGLOBIN 14.9 g/dL (14.0-18.0); MCH 30.7 PG (27-31); MCHC 32.5 g/dL (33-37); MCV 94.4 FL (81-99); MPV 9.9 FL (7.4-10.4); RBC 4.85 XMIL (4.7-6.1); RDW 13.5 % (11.5-14.5); WBC 10.37 X1000 (4.8-10.8)
[2019-04-14 07:59] LABS: AGAP 11; BUN 24 mg/dL (8-22); CALCIUM 9.2 mg/dL (8.8-10.2); CHLORIDE 101 mmol/L (98-107); COSMO 281; ESTIMATED GFR > 60; GLUCOSE 83 mg/dL (70-104); POTASSIUM 4.2 mmol/L (3.5-5.1); SODIUM 139 mmol/L (136-145); TCO2 27 mmol/L (25-35)
--- NOTE | 2019-04-14 08:00 | Diag Imaging Result Doc PS360 ---
CHEST-2 VIEWS - 04/14/2019 INDICATION: abnormal exam COMPARISON: 04/09/2019 FINDINGS: There is trace, hazy infiltrate or atelectasis in the lateral costophrenic angles bilaterally. Heart size and pulmonary vascularity is grossly normal. No pneumothorax or pleural effusion. IMPRESSION: Trace nonspecific hazy infiltrate or atelectasis in the lung bases. Electronically signed by Nico Eddy 04/14/2019 7:58 AM
[2019-04-14] MEDS: FLONASE NAS SCH (10:22)
[2019-04-14] MEDS: KEFLEX PO SCH (10:23)
[2019-04-14] MEDS: ZITHROMAX PO SCH (10:23)
[2019-04-14] MEDS: SINGULAIR PO SCH (10:23)
[2019-04-14] MEDS: FOLTX PO SCH (10:24)
[2019-04-14] MEDS: PREDNISONE PO SCH (10:24)
[2019-04-14] MEDS: PRILOSEC PO SCH (10:24)
[2019-04-14 11:38] VITALS: BP 113/80
--- NOTE | 2019-04-14 17:33 | PULMONOLOGY PROGRESS NOTE ---
DATE: 04/14/2019 SUBJECTIVE: The patient is awake, alert, and conversant. He is ambulating in his room. He reports his shortness of breath has resolved. He continues to have some nasal drainage, but nasal passages are opening. OBJECTIVE: Vital Signs: The patient has been afebrile for the last 24 hours. Blood pressure 128/86, heart rate 77, respiratory rate 20, oxygen saturation 95% on room air. HEENT: Pupils are equal and reactive. Oropharynx appears clear. Mild nasal congestion. Cardiac exam: Regular rate, normal S1, normal S2. Abdomen: Soft. Extremities: Without edema. LABORATORIES: White blood count 10.37, hemoglobin 14.9, platelet count 289,000. IMPRESSION: 54-year-old with: 1. Chronic rhinosinusitis. 2. Asthma with both eosinophilia and marked elevation in IgE level. 3. Acute hypoxemic respiratory failure, which has resolved. 4. CT scan with nonspecific pulmonary infiltrates. DISCUSSION: A 63-year-old with problems outlined above. He continues to improve with steroids. He is ready for discharge. PLAN: 1. Continue steroids at the time of discharge. Recommend 3 to 4 week taper. 2. Recommend outpatient allergy/ENT follow-up. The patient has been seen by Dr. Fito vang in the past. He appears to be a good candidate for Dupixent. 3. Recommend followup with Pulmonary Medicine. He has been seen by Dr. Cullen's service during this hospitalization and should follow up with Dr. Cullen or with Dr. Jae Meyer whom he has also seen on an outpatient basis. cc: Jordan Kothari MD [facility]
--- NOTE | 2019-04-26 12:20 | DISCHARGE SUMMARY ---
ADMISSION DATE: 04/09/2019 DISCHARGE DATE: 04/14/2019 FINAL DISCHARGE DIAGNOSES: 1. Pulmonary infiltrates with eosinophilia. 2. Chronic rhinosinusitis. 3. Gastroesophageal reflux disease. CONSULTATIONS: Pulmonary consultation with Dr. Kothari. IMAGING: Pulmonary arteriogram performed on 04/09/2019 that revealed no pulmonary emboli. Tiny patchy infiltrates. HOSPITAL COURSE: Mr. High is a 63-year-old male with a history of chronic rhinosinusitis, who presented to the ER with the chief complaint of wheezing and bronchospasm. A CT of the chest was done that revealed patchy infiltrates. The patient was also noted to have a significant eosinophilia. The patient was admitted to the hospitalist service and started on antibiotics and bronchodilator therapy as well as steroids. Pulmonary was consulted for further treatment recommendations. The patient does have chronic rhinosinusitis and he is under the care of ENT for that. He has a procedure scheduled for next month. The patient responded well to the treatment regimen. An YAA was checked as well as ANCA serologies. The YAA came back positive. However, the ANCA serologies were negative. Also, the patient's IgE was markedly elevated. The patient's immunoglobulin levels were noted to be normal. The patient continued to improve clinically and he was able to be weaned off of supplemental oxygen. It was recommended that the patient follow up with Dr. Kothari as an outpatient as well as ENT as schedule, and that the patient would likely need to be seen by a framer to assess the positive YAA. DISCHARGE MEDICATIONS: 1. Prednisone taper. 2. Keflex 500 mg oral twice a day x7 days. 3. Fluticasone 1 spray intranasal daily. 4. Omeprazole 40 mg oral twice a day. 5. Ellipta 1 inhalation daily. 6. Singulair 10 mg oral daily. 7. Benzonatate 1 capsule oral every 4 hours p.r.n. for cough. DISCHARGE DIET: Regular diet. ACTIVITY: As tolerated. FOLLOWUP INSTRUCTIONS: The patient will need to follow up with Dr. Kothari as scheduled by his clinic. The patient will also need to follow up with Dr. Mcguire as scheduled. cc: Drea Glover MD
== END 2019-04-14 13:01 | disposition home or self-care (01) | DRG 196 ==
LOC: ED 13:09 → SUATTDRO 16:52 → EDIPHOLD 16:52 → 3N 19:18
PROVIDERS: ATTEND Internal Medicine

== ENCOUNTER 2019-06-16 20:19 | Inpatient (IN) ==
[2019-06-16] MEDS ORDERED: SOLU-MEDROL IV ONE (20:35)
[2019-06-16] MEDS ORDERED: DUONEB (A & A) INH ONE (20:35)
--- NOTE | 2019-06-16 20:47 | PROVIDER DOCUMENTATION ---
This chart was entered by Radha Aguirre Scribe, acting as scribe for Jax Zavala MD. HPI-Respiratory General - General Chief Complaint: Chest Pain Stated Complaint: CHEST PAIN/SOB Time Seen by Provider: 06/16/19 20:26 Source: patient Allergies/Adverse Reactions: Patient Allergies Allergy/AdvReac Type Severity Reaction Status Date / Time Penicillins Allergy RASH Verified 06/16/19 20:43 Home Medications: Home Medication List Medication Instructions Recorded Confirmed Last Taken Type Montelukast [Singulair] 10 mg PO DAILY 04/09/19 06/16/19 04/08/19 08:00 History Omeprazole 40 mg PO BID 04/09/19 06/16/19 04/09/19 11:00 History Budesonide/Formoterol Fumarate 2 puff INH DAILY 06/16/19 06/16/19 Unknown History [Symbicort 160-4.5 Mcg Inhaler] Chlorpheniramine Maleate [Allergy 4 mg PO DAILY 06/16/19 06/16/19 Unknown History 4-Hour] Doxycycline Hyclate 100 mg PO BID 06/16/19 06/16/19 Unknown History - History of Present Illness-Resp Nature of Presenting Problem: 63 yowm with history of COPD,GERD, and recurrent pneumonia who presents with worsening c/o sinus drainage, sob, productive thomas, brown, green, and black cough, and pleuritic substernal chest discomfort for past several months. Currently taking antibiotic that doesnt seem to work. Patient was admitted to [facility] during for pneumonia. no fever, chills or nvd. no cardiac hx, had full workup w/ Dr. Grady 3 yrs ago including heart cath and was negative. nonsmoker, no alcohol or drug use. no o2, breathing tx at home. Severity in ED: reports: mild Onset/Duration: reports: other (since february worsening today) Timing: reports: still present Context: reports: other (recurrent PNU) Cough Quality/Degree: reports: productive cough Episode Frequency: frequent episodes Current Respiratory Medication Therapy: Initiated none Modifying Factors: improves with: nothing Associated Symptoms: reports: chest pain/soreness, cough, nasal drainage, shortness of breath Similar Symptoms Previously?: Yes Recently seen or treated by another doctor?: Yes Review of Systems - Adult - REVIEW OF SYSTEMS - ADULT Constitutional: reports: no symptoms reported. denies: chills, fever, fatique Eyes: reports: no symptoms reported Ears, Nose, Mouth & Throat: reports: see HPI, sinus problem (drainage). denies: ear discharge, ear pain, throat pain Cardiovascular: reports: no symptoms reported Respiratory: reports: see HPI, cough, excessive sputum production, pleurisy, shortness of breath. denies: dyspnea on exertion, hemoptysis Gastrointestinal: reports: no symptoms reported. denies: diarrhea, nausea, vomiting Genitourinary: reports: no symptoms reported Musculoskeletal: reports: no symptoms reported Integumentary: reports: no symptoms reported Neurological: reports: no symptoms reported Psychiatric: reports: no symptoms reported Endocrine: reports: no symptoms reported Hematologic/Lymphatic: reports: no symptoms reported Allergic/Immunologic: reports: no symptoms reported All Other Systems: Reviewed and Negative Past History - Adult - PAST MEDICAL HISTORY-ADULT Review of Records: reports: Nursing Assessment Review, Medications Reviewed, Social history reviewed & non-contributory. Major Childhood Illnesses: reports: denies history Cardiovascular: reports: HTN Respiratory: reports: COPD, pneumonia Gastrointestinal: reports: GERD Obstetrical/Gynecological: reports: denies history Genitourinary: reports: denies history Musculoskeletal: reports: denies history Neurological: reports: other (neuropathy) Psychiatric: reports: denies history Endocrine/Immune: reports: denies history Other Conditions: reports: other (seasonal allergies) - PRIOR SURGERIES/PROCEDURES Surgical/Procedure History: reports: recent surgery (sinus sx 4 weeks ago), cholecystectomy, orthopedic (extremity) (carpel tunnel), other (lymph node RLE) - IMMUNIZATION STATUS Childhood Immunizations: See Nurse Assessment Flu Vaccine: See Nurse Assessment - FAMILY HISTORY Family History: reviewed, not pertinent - SOCIAL HISTORY Smoking: non-smoker Substance Use: none/never Physical Exam-General - PHYSICAL EXAM-ADULT Initial Vital Signs Reviewed: Yes - CONSTITUTIONAL General Appearance: appears well, alert, no apparent distress, obese, other (nondiaphoretic). negative: lethargic, slow to respond, obtunded - EYES Eyes: PERRL/EOMI - HEAD, EARS, NOSE, MOUTH & THROAT HENMT: normocephalic/atraumatic, moist mucous membranes, normal ENT inspection - NECK Neck: non-tender, full range of motion, supple, normal inspection - RESPIRATORY Respiratory: no respiratory distress, no accessory muscle use, decreased breath sounds, rhonchi (scattered), wheezing (scattered), other (chest mild tender on palp). negative: chest non-tender, lungs clear, no pleuratic chest pain - CARDIOVASCULAR Cardiovascular: normal peripheral pulses, regular rate, rhythm - CHEST (BREASTS) Chest/Breast: tenderness (on palp). negative: no tenderness - GASTROINTESTINAL (ABDOMEN) Abdominal Exam: normal bowel sounds, non tender, soft - MUSCULOSKELETAL Back Exam: normal inspection Extremity: normal range of motion, non-tender, normal inspection, no calf tenderness Peripheral Pulses: radial (R): 2+, radial (L): 2+ - SKIN Integumentary: normal color, normal turgor, warm/dry - NEUROLOGIC Neurologic: grossly normal, no motor/sensory deficits - PSYCHIATRIC Psych/Mental Status: normal mood/affect, normal thought content, normal thought process, oriented x 3, anxious Progress - PLAN OF CARE/RESULTS Progress/Plan/Lab Results: Vital Signs - 8 hr 06/16/19 20:20 06/16/19 21:05 06/16/19 21:26 Temperature 97.7 F Pulse Rate 95 H 96 H 99 H Respiratory Rate 28 H 20 Blood Pressure 139/90 127/90 O2 Sat by Pulse Oximetry 93 L 97 91 L 06/16/19 21:57 Temperature Pulse Rate 98 H Respiratory Rate 22 Blood Pressure 114/83 O2 Sat by Pulse Oximetry 90 L Laboratory Results - last 24 hr 06/16/19 06/16/19 06/16/19 20:35 20:35 20:35 WBC 10.92 H RBC 4.66 L Hgb 14.0 Hct 44.4 MCV 95.3 MCH 30.0 MCHC 31.5 L RDW Std Deviation 13.1 Plt Count 237 MPV 10.2 Immature Gran % (Auto) 0.2 Neut % (Auto) 51.9 Lymph % (Auto) 12.8 L [place] % (Auto) 9.5 H Eos % (Auto) 25.3 H Baso % (Auto) 0.3 Immature Gran # (Auto) 0.02 Neut # (Auto) 5.67 Lymph # (Auto) 1.40 [place] # (Auto) 1.04 H Eos # (Auto) 2.76 H Baso # (Auto) 0.03 Segmented Neutrophils 52 Lymphocytes 16 L Monocytes 9 Eosinophils 22 H Atypical Lymphocytes 1.0 Hypochromia OCCASIONAL PT INR D-Dimer, Quantitative Sodium 142 Potassium 4.4 Chloride 104 Carbon Dioxide 28 Anion Gap 11 BUN 16 Creatinine 0.8 Estimated GFR/1.73 m2 > 60 BUN/Creatinine Ratio 20 Glucose 101 Calculated Osmolality 284 Calcium 9.0 Total Bilirubin 0.30 AST 22 ALT 18 Alkaline Phosphatase 71 Creatine Kinase 91 Troponin T High Sens 240 H* Clw-W-Gtzbkentbtq Pept Total Protein 6.8 Albumin 4.0 Globulin 3.0 Albumin/Globulin Ratio 1.0 Plasma Lactate Urine Source Urine Color Urine Clarity Urine pH Ur Specific [place] Urine Protein Urine Ketones Urine Blood Urine Nitrite Urine Bilirubin Urine Urobilinogen Urine Microscopic RBC Urine WBC Urine Microscopic WBC Ur Epithelial Cells Urine Bacteria Urine Glucose 06/16/19 06/16/19 06/16/19 20:35 20:35 20:35 WBC RBC Hgb Hct MCV MCH MCHC RDW Std Deviation Plt Count MPV Immature Gran % (Auto) Neut % (Auto) Lymph % (Auto) [place] % (Auto) Eos % (Auto) Baso % (Auto) Immature Gran # (Auto) Neut # (Auto) Lymph # (Auto) [place] # (Auto) Eos # (Auto) Baso # (Auto) Segmented Neutrophils Lymphocytes Monocytes Eosinophils Atypical Lymphocytes Hypochromia PT 13.3 INR 0.96 D-Dimer, Quantitative Sodium Potassium Chloride Carbon Dioxide Anion Gap BUN Creatinine Estimated GFR/1.73 m2 BUN/Creatinine Ratio Glucose Calculated Osmolality Calcium Total Bilirubin AST ALT Alkaline Phosphatase Creatine Kinase Troponin T High Sens Esi-I-Snlectzzwca Pept 853 H Total Protein Albumin Globulin Albumin/Globulin Ratio Plasma Lactate 0.8 Urine Source Urine Color Urine Clarity Urine pH Ur Specific [place] Urine Protein Urine Ketones Urine Blood Urine Nitrite Urine Bilirubin Urine Urobilinogen Urine Microscopic RBC Urine WBC Urine Microscopic WBC Ur Epithelial Cells Urine Bacteria Urine Glucose 06/16/19 06/16/19 20:35 21:49 WBC RBC Hgb Hct MCV MCH MCHC RDW Std Deviation Plt Count MPV Immature Gran % (Auto) Neut % (Auto) Lymph % (Auto) [place] % (Auto) Eos % (Auto) Baso % (Auto) Immature Gran # (Auto) Neut # (Auto) Lymph # (Auto) [place] # (Auto) Eos # (Auto) Baso # (Auto) Segmented Neutrophils Lymphocytes Monocytes Eosinophils Atypical Lymphocytes Hypochromia PT INR D-Dimer, Quantitative 0.60 H Sodium Potassium Chloride Carbon Dioxide Anion Gap BUN Creatinine Estimated GFR/1.73 m2 BUN/Creatinine Ratio Glucose Calculated Osmolality Calcium Total Bilirubin AST ALT Alkaline Phosphatase Creatine Kinase Troponin T High Sens Hmd-I-Acyeioztbup Pept Total Protein Albumin Globulin Albumin/Globulin Ratio Plasma Lactate Urine Source CLEAN CATCH Urine Color YELLOW Urine Clarity CLEAR Urine pH 7.0 Ur Specific [place] 1.015 Urine Protein TRACE A Urine Ketones NEGATIVE Urine Blood NEGATIVE Urine Nitrite NEGATIVE Urine Bilirubin NEGATIVE Urine Urobilinogen 0.2 Urine Microscopic RBC <10 Urine WBC NEGATIVE Urine Microscopic WBC <10 Ur Epithelial Cells <10 Urine Bacteria NEGATIVE Urine Glucose NEGATIVE Orders Category Date Time Status Admit - [facility] Routine AdmDCTranf 06/16/19 22:38 Active Activity - Strict Bedrest ORDERED Care 06/16/19 22:38 Active Cardiac Monitoring NOW Care 06/16/19 20:33 Active IV Insertion NOW Care 06/16/19 20:33 Completed NEWS Score >or=5:Order NEWS Bundle S.O. NOW Care 06/16/19 20:32 Active Notify Provider of NEWS Score NOW Care 06/16/19 20:33 Active Nursing- MD Consult Request ROUTINE Care 06/16/19 21:27 Active Resuscitation Status Routine Care 06/16/19 22:38 Ordered Vital Signs Order Q 4-HR ASSESS Care 06/16/19 22:38 Active Z-Document. for Tele Applied ORDERED Care 06/16/19 22:40 Active Physician/Provider Consults Routine Cons 06/16/19 21:26 Ordered NPO Diet 06/16/19 22:39 Active CHEST-2 VIEWS [RAD] Stat Exams 06/16/19 20:36 Completed CTA [CT ANGIOGRM PULMONARY ARTERIES] [CT] Stat Exams 06/16/19 22:01 Taken BLOOD CULTURE [BLDCUL] Stat Lab 06/16/19 20:43 Received BNP [PRO B-NATRIURETIC PEPTIDE] Stat Lab 06/16/19 20:35 Completed CBC WITH DIFF [HEME] Stat Lab 06/16/19 20:35 Completed CK PROFILE [SP CHEM] Stat Lab 06/16/19 20:35 Completed CK PROFILE [SP CHEM] Stat Lab 06/16/19 23:30 Ordered CK PROFILE [SP CHEM] Stat Lab 06/17/19 03:30 Ordered COMPREHENSIVE METABOLIC PANEL [CHEM] Stat Lab 06/16/19 20:35 Completed D-DIMER [COAG] Stat Lab 06/16/19 20:35 Completed LACTATE, PLASMA [CHEM] Lab 06/16/19 20:35 Completed LACTATE, PLASMA [CHEM] Lab 06/16/19 23:45 Uncollected LACTATE, PLASMA [CHEM] Lab 06/17/19 02:45 Uncollected PROTIME WITH INR [COAG] Stat Lab 06/16/19 20:35 Completed TROPONIN T HIGH SENSITIVITY Stat Lab 06/16/19 20:35 Completed TROPONIN T HIGH SENSITIVITY Stat Lab 06/16/19 23:30 Uncollected TROPONIN T HIGH SENSITIVITY Stat Lab 06/17/19 03:30 Uncollected URINE CULTURE [RM] Routine Lab 06/16/19 22:05 Ordered Albuterol 2.5MG/Ipratrop 0.5MG [Duoneb (A & A)] Med 06/16/19 20:35 Discontinued 3 ml INH NOW ONE Albuterol 2.5MG/Ipratrop 0.5MG [Duoneb (A & A)] Med 06/16/19 23:30 Ordered 3 ml INH RTQ4H Aspirin Med 06/16/19 21:22 Discontinued 324 mg PO NOW ONE Levofloxacin 750 mg/D5w [Levaquin 750 mg/D5w] Med 06/16/19 22:42 Active 750 mg in 150 ml IV NOW Methylprednisolone Sod Succ [Solu-Medrol] Med 06/16/19 20:35 Discontinued 125 mg IV NOW ONE Aerosol Treatments Routine Oth 06/16/19 20:35 Completed Aerosol Treatments Routine Ot 06/16/19 22:40 Active Aerosol Treatments Stat Ot 06/16/19 20:35 Completed Aerosol Treatments Stat Ot 06/16/19 22:40 Active O2 Per Protocol Stat Ot 06/16/19 20:33 Completed Oxygen Device Stat Ot 06/16/19 22:00 Active Telemetry [OM.EQ] Routine Oth 06/16/19 22:38 Active Transfer/Admit Order [TRANSFER] Routine Transfer 06/16/19 22:41 Ordered Result Diagrams: 06/16/19 20:35 06/16/19 20:35 - EKG 1 Time of EKG reading by physician:: 20:26 EKG Read and Signed by:: Jax Zavala EKG Interpretation (*Must complete 3 of following elements*): Abnormal Rate: 95 Rhythm: NSR [place]: right QRS: RBB (incomplete), other (low voltage QRS) [place] Interval: normal ST Wave: normal - XRAY 1 XRAY Study: Chest Impression: Abnormal, See EMR Report ( EXAM: CHEST-2 VIEWS INDICATION: productive cough,pleuritic chest pain TECHNIQUE: 2 views COMPARISON: 04/14/2019 FINDINGS: There are ill-defined patchy infiltrates at the lower lung zones and perihilar regions suggesting pneumonia versus mild edema and pulmonary venous congestion. There is no discrete pleural fluid collection or pneumothorax. The cardiac silhouette is unremarkable. IMPRESSION: Ill-defined perihilar and lower lung zone infiltrates as described. Electronically signed by Roby Aguirre 06/16/2019 9:04 PM) - CONSULTS/PCP/HOSPITALIST Notification #1 *Consult/PCP/Hospitalist*: Dr. Ortega Time Discussed: 22:36 Consult Disposition: Admit #2 Consult: Dr. Krystina Espinosa Discussed: 22:00 Reason/Comments: recommend transfer to [facility] to hospitalist service Consult Disposition: Admit Departure - Departure Date of Disposition Decision: 06/16/19 Time of Disposition Decision: 22:45 DIAGNOSIS: Elevated troponin, Elevated d-dimer Chest pain Qualifiers: Chest pain type: unspecified Qualified Code(s): R07.9 - Chest pain, unspecified COPD (chronic obstructive pulmonary disease) Qualifiers: COPD type: unspecified COPD Qualified Code(s): J44.9 - Chronic obstructive pulmonary disease, unspecified Disposition: ADMITTED INPATIENT 09 Certified Medical Emergency: Emergent Condition: Stable Referrals and Follow-Ups: Zeus Leigh MD [Primary Care Provider] - - Critical Care Note This patient required my direct & personal management of CC.: No Attestation - Physician/ DANIKA Attestation Patient care was provided by Advanced Practice Provider:: No The physician spent face to face time with patient:: Yes Advanced Practice Provider documentation review:: Supervising physician onsite and consulted in the evaluation and care of this patient. The physician did have a face to face encounter with the patient. This chart was documented by the indicated scribe, (Radha Aguirre Scribe) and accurately reflects the services I performed and decisions made by me, Jax Zavaal MD, as attested by the provider's signature.
[2019-06-16 20:50] LABS: BASO# 0.03 X1000 (0.0-0.2); BASO% 0.3 % (0.0-0.8); EOS# 2.76 X1000 (0.0-0.7); EOS% 25.3 % (0.0-10.0); HEMATOCRIT 44.4 % (42.0-52.0); IMM GRAN# 0.02 X1000 (0.0-0.04); IMM GRAN% 0.2 % (0.0-0.5); LYMPH% 12.8 % (20.5-51.1); MCHC 31.5 g/dL (33-37); MCV 95.3 FL (81-99); MONO# 1.04 X1000 (0.11-0.59); MONO% 9.5 % (1.7-9.3); MPV 10.2 FL (7.4-10.4); NEUT# 5.67 X1000 (1.4-6.5); NEUT% 51.9 % (42.2-75.2); PLT 237 X1000 (130-400); RBC 4.66 XMIL (4.7-6.1); RDW 13.1 % (11.5-14.5); WBC 10.92 X1000 (4.8-10.8)
[2019-06-16 21:02] LABS: INR 0.96; PROTIME 13.3 Seconds (11.0-16.0)
--- NOTE | 2019-06-16 21:06 | Diag Imaging Result Doc PS360 ---
EXAM: CHEST-2 VIEWS INDICATION: productive cough,pleuritic chest pain TECHNIQUE: 2 views COMPARISON: 04/14/2019 FINDINGS: There are ill-defined patchy infiltrates at the lower lung zones and perihilar regions suggesting pneumonia versus mild edema and pulmonary venous congestion. There is no discrete pleural fluid collection or pneumothorax. The cardiac silhouette is unremarkable. IMPRESSION: Ill-defined perihilar and lower lung zone infiltrates as described. Electronically signed by Roby Aguirre 06/16/2019 9:04 PM
[2019-06-16 21:07] LABS: AGAP 11; ALKALINE PHOSPHATASE 71 U/L (32-122); BUN 16 mg/dL (8-22); CHLORIDE 104 mmol/L (98-107); CK PROFILE 91 U/L (24-204); COSMO 284; CREATININE 0.8 mg/dL (0.7-1.2); ESTIMATED GFR > 60; GLUCOSE 101 mg/dL (70-104); GOT 22 U/L (10-34); GPT 18 U/L (10-44); POTASSIUM 4.4 mmol/L (3.5-5.1); SODIUM 142 mmol/L (136-145); TCO2 28 mmol/L (25-35); TOTAL PROTEIN 6.8 g/dL (6.3-8.3)
[2019-06-16 21:17] LABS: EOS 22 % (1-10); HYPOCHROM OCCASIONAL; LYMPHS 16 % (21-51); MONO 9 % (1-9); SEGS 52 % (42-75)
[2019-06-16] MEDS ORDERED: ASPIRIN PO ONE (21:22)
[2019-06-16 21:55] LABS: URINE SOURCE CLEAN CATCH
[2019-06-16 22:03] LABS: URINE BACTERIA NEGATIVE /HFP; URINE EPITHELIAL CELLS <10 /HPF (<10); URINE RBC <10 /HPF (<10); URINE WBC <10 /HPF (<10)
[2019-06-16 22:04] LABS: BILIRUBIN URINE NEGATIVE (NEGATIVE); BLOOD URINE NEGATIVE (NEGATIVE); CLARITY CLEAR (CLEAR); COLOR YELLOW; GLUCOSE URINE NEGATIVE (NEGATIVE); KETONE URINE NEGATIVE (NEGATIVE); LEUKOCYTES URINE NEGATIVE (NEGATIVE); NITRITE URINE NEGATIVE (NEGATIVE); PROTEIN URINE TRACE mg/dL (NEGATIVE); SP GRAVITY URINE 1.015; UROBILINOGEN URINE 0.2 EU/dL (0.2-1.0)
[2019-06-16] MEDS ORDERED: LEVAQUIN 750 MG/D5W 750 MG/150 ML IVPB IV ONE (22:42)
[2019-06-16] MEDS ORDERED: ALBUTEROL NEB ONE (22:53)
[2019-06-16] MEDS ORDERED: DUONEB (A & A) INH SCH (23:30)
[2019-06-17] MEDS ORDERED: ZOFRAN IV PRN (01:17)
[2019-06-17] MEDS ORDERED: TYLENOL PO PRN (01:17)
[2019-06-17] MEDS ORDERED: DUONEB (A & A) INH PRN (01:39)
--- NOTE | 2019-06-17 01:56 | HISTORY AND PHYSICAL ---
PRIMARY CARE PHYSICIAN: Unknown. CHIEF COMPLAINT: Chest pain, shortness of breath x1 week. HISTORY OF PRESENTING ILLNESS: A 63-year-old male with a history of GERD, who presented to emergency department due to patient having chest pain and shortness of breath. The patient states the pain was substernal and was more pressure-like and he was having more frequent shortness of breath. He was initially evaluated at [facility] and, due to lack of subspecialist care, he was transferred to [facility] for further evaluation and management. At the time of my examination, patient denied any headache, fever, chills, nausea, vomiting, diarrhea, hemoptysis, but complained of chest pain and shortness of breath. PAST MEDICAL HISTORY: Includes GERD. PAST SURGICAL HISTORY: Cholecystectomy, right ACL repair, lymph node removal from groin. ALLERGIES: Penicillin. CURRENT MEDICATIONS: Doxycycline 100 mg p.o. b.i.d., singular 10 mg p.o. daily, omeprazole 40 mg p.o. b.i.d. SOCIAL HISTORY: No history of smoking, alcohol or illicit drug use. FAMILY HISTORY: No history of coronary disease. REVIEW OF SYSTEMS: Fourteen point review of system listed as in HPI. Other systems negative. PHYSICAL EXAMINATION: GENERAL: Cooperative, friendly male. He is resting comfortably now. VITAL SIGNS: Temperature 97.8 degrees, pulse 94, respiration 18, blood pressure 130/78. HEENT: Atraumatic, normocephalic. Extraocular movements intact. PERRLA. NECK: No masses. CHEST: Bibasilar rales. CARDIOVASCULAR: Regular rate and rhythm. ABDOMEN: Soft. Positive bowel sounds. EXTREMITIES: No edema. NEUROLOGIC: He is awake, alert, oriented x3. GENITOURINARY: No bladder distention. SKIN: Warm. LABORATORIES AND STUDIES: Chest x-ray shows ill-defined perihilar and lower lung zone infiltrates. WBCs 10.92, hemoglobin 14.1, hematocrit 44.4, platelets 237,000. Troponin is 240. ProBNP is 853. Sodium 142, potassium 4.4, chloride 104, CO2 is 28, BUN is 16, creatinine 0.8. Glucose is 101. ASSESSMENT: A 63-year-old male with a history of gastroesophageal reflux disease, who had presented to emergency department with 1-week history of having persistent chest pain and shortness of breath. He was evaluated at [facility] and due to lack of subspecialist care he was transferred for cardiology consultation at [facility] for further evaluation and management ASSESSMENT: 1. Chest pain with elevated troponin. 2. Probable pneumonia. 3. Gastroesophageal reflux disease. PLAN: 1. We will admit patient to P[facility]. 2. Continue cardiac workup. Check EKG, serial cardiac enzymes. Have patient continue on aspirin. Use sublingual nitroglycerin p.r.n. chest pain. 3. We will check blood cultures. Start patient on IV antibiotics and continue with DuoNebs. 4. We will start patient's home medications. 5. Put patient on DVT prophylaxis with SCD and Lovenox. 6. We will continue to follow and reassess, make further recommendation based on patient's clinical course. cc: Rey Ortega MD
--- NOTE | 2019-06-17 06:29 | Diag Imaging Result Doc PS360 ---
CT ANGIOGRM PULMONARY ARTERIES - 06/16/2019 INDICATION: sob,elevated d-dimer TECHNIQUE: Axial CT images were obtained after administering intravenous contrast. Coronal MIP images were generated. COMPARISON: 04/09/2019 FINDINGS: Contrast opacification of the pulmonary arteries is suboptimal. There is also significant patient motion artifact. No obvious pulmonary embolism. There are some prominent mediastinal lymph nodes similar to prior. No specific adenopathy. There are cholecystectomy clips. There is a tiny 2 mm nonobstructing left renal stone. There are patchy multifocal infiltrates throughout the lungs bilaterally. No pneumothorax or pleural effusion. There are moderate degenerative changes of the spine. No acute or suspicious bony lesion. IMPRESSION: 1. No definite pulmonary embolism. 2. Extensive patchy multifocal infiltrates bilaterally suggesting viral pneumonia or pulmonary edema. 3. Tiny nonobstructing left renal stone. This exam was performed using automated exposure control, adjustment of mA or kV according to patient size, and/or use of iterative reconstruction technique Electronically signed by Nico Eddy 06/17/2019 6:27 AM
[2019-06-17] MEDS ORDERED: VANCOMYCIN IV PER PHARMACY MISC SCH (08:15)
[2019-06-17] MEDS ORDERED: VANCOMYCIN 2,000 MG in NS 500 ML IV ONE (09:00)
--- NOTE | 2019-06-17 09:24 | PROGRESS NOTE ---
DATE: 06/17/2019 SUBJECTIVE: Patient reports feeling fine. He reports that the chest pain that he has is triggered by coughing and that makes that pain worse. He denies any chest pain at rest or chest pressure. OBJECTIVE: Vital Signs: Temperature 98.2 degrees, heart rate 77 respiratory 16, blood pressure 132/77, O2 saturation 97% on 2 L nasal cannula. General: This is a 63-year-old male lying in bed in no acute distress. Cardiovascular: S1, S2 heard. No murmurs, gallops, or rubs. Regular rate and rhythm. Respiratory: Coarse breath sounds and rales noted in both pulmonary hdez, mostly noted in both bases. Patient not using any accessory muscles or having work of breathing. Patient does not have any labored breathing. Abdomen: Soft, nontender to palpation. Bowel sounds present. No organomegaly. Extremities: No clubbing, cyanosis, or edema. Peripheral pulses present in both legs. Neurological: Patient alert and oriented x3. Moves all 4 extremities. LABORATORY DATA: There are no labs yet today. ASSESSMENT AND PLAN: 1. Chest pain with elevation of troponins. I think this chest pain is secondary to the pneumonia this patient has. This troponin elevation most likely will be related to mismatch demand supply. Patient does not smoke. He does not have any diabetes, hypertension, hyperlipidemia. Does not have any family history of coronary artery disease. I think at this point, we are going to add vancomycin to his current treatment. Patient is allergic to penicillin, so he is going to be on Levaquin and vancomycin. I think we are going to provide breathing treatments with DuoNeb every 4 hours. Cardiology has been consulted from admission. We will see what they have to say. 2. Community-acquired pneumonia. We will continue with Levaquin and will add vancomycin. We will add breathing treatment. We will go from there. 3. Gastroesophageal reflux disease, stable. We will continue to monitor. 4. Disposition: I think we are going to check troponins this morning again and echocardiogram and will continue to monitor this patient closely. cc: Murtaza Bowen MD
[2019-06-17] MEDS: SINGULAIR PO SCH (09:33)
[2019-06-17] MEDS: ASPIRIN PO SCH (09:33)
[2019-06-17] MEDS: PRILOSEC PO SCH ×2 (09:33→21:08)
[2019-06-17] MEDS: DUONEB (A & A) INH SCH ×4 (11:31→23:27)
[2019-06-17] MEDS: SYMBICORT 160/4.5 MICROGM INHALER INH SCH (11:31)
--- NOTE | 2019-06-17 14:22 | CONSULTATION ---
DATE OF CONSULTATION: 06/17/2019 IMPRESSION: 1. Atypical chest pain probably related to acute pulmonary infectious process. 2. Bilateral patchy infiltrates on chest CT scan, suspicious for pneumonia, possibly viral in origin with patient presenting with pleuritic atypical chest discomfort and productive cough for more than a week that worsened yesterday. 3. Mild nonspecific elevation in troponin. Electrocardiogram benign and patient has not had any angina. Suspect noncardiac and possibly related to acute respiratory infectious process. RECOMMENDATIONS: 1. Follow up cardiac enzymes. 2. Echocardiography. 3. Treat for acute respiratory infectious process as you are doing. The patient has not had influenza vaccine and will be useful to confirm his influenza status. 4. Would not pursue stress testing at this time given ongoing apparent respiratory infectious process. This certainly could be considered later after clinical improvement. HISTORY: This 63-year-old white male with no prior cardiovascular history was admitted to the emergency room at [facility] with productive cough, atypical chest pain and some shortness of breath. His troponin was mildly elevated in nonspecific range. He had chest CT scan which was negative for pulmonary embolus. CT scan did suggest patchy bilateral infiltrates, possibly viral pneumonia. The patient relates that he has had some problems with sinus congestion and drainage for a month. He started having problems with shortness of breath and cough over the past week. As his cough got worse, he started having some discomfort in his chest characterized as a pressure that occurred with cough and deep breath. He was going to have a sleep study at [facility] yesterday and his coughing got considerably worse, prompting him to go to the emergency room for evaluation. ECG was benign and troponin was mildly elevated in nonspecific range. He had a chest CT scan which was negative for pulmonary embolus and indicated bilateral patchy infiltrates, possibly viral pneumonia. He was subsequently transferred over here for further management. PAST MEDICAL HISTORY: 1. Negative for hypertension, negative for diabetes, negative for hyperlipidemia. 2. Previous noninvasive cardiac evaluation about 5 years ago negative. 3. Chronic sinus congestion and drainage, possibly chronic allergic sinusitis. 4. Gastroesophageal reflux disease. PAST SURGICAL HISTORY: Includes cholecystectomy, right ACL repair, and lymph node removal from groin. ALLERGIES: He is allergic or intolerant to penicillin. MEDICATIONS PRIOR TO ADMISSION: As listed. SOCIAL HISTORY: He quit smoking 40 years ago. He does not use alcohol. FAMILY HISTORY: Negative for premature coronary disease. REVIEW OF SYSTEMS: Pulmonary: Noteworthy for cough, atypical chest pain and sputum which has been white to light yellow in color. Gastrointestinal: Negative. Constitutional: He is not aware of any fever. Remainder of review of systems negative/noncontributory with 14 total systems reviewed. PHYSICAL EXAMINATION: General: This is a obese, older, white male in no distress on supplemental oxygen per nasal cannula. Vital signs: Blood pressure 132/77, heart rate 90, oxygen saturation 92% on nasal cannula oxygen at 2 L/minute. HEENT: Extraocular movements intact. Mucous membranes are moist. Neck: Supple without jugular venous distention. Chest: Auscultation of the chest reveals rather prominent scattered expiratory rhonchi and wheezes. Cardiac Exam: Reveals a regular rate and rhythm without appreciable murmur or gallop. Abdomen: Soft. Bowel sounds are normal. Extremities: Without edema. Neurologic: Alert and oriented. Speech is fluent. Moves all 4 extremities equally well. PERTINENT DATA: A 12-lead EKG demonstrates normal sinus rhythm, right axis deviation, and low- voltage QRS. LABORATORY DATA: Includes a white blood cell count 2.92, hematocrit 44.4, hemoglobin 14.0, platelet count 237,000. Sodium 142, potassium 4.4, chloride 104, carbon dioxide 28, BUN 16, creatinine 0.8, glucose 101. Troponin T high sensitivity initially 240 with followup troponin T high sensitivity 227, 116. Initial CPK 91, with followup CPKs of 82 and 65. cc: Malcom Flaherty MD
--- NOTE | 2019-06-17 17:08 | ECHO REPORT ---
ORDER DATE: 06/17/2019 ECHOCARDIOGRAPHIC MEASUREMENTS: 1. Interventricular septum 1.2 left ventricular posterior wall 1.2. 2. Diastolic diameter 5.5, aorta 3.7, left atrium 4 cm, normal left ventricular cavity size. 3. Mild left ventricular hypertrophy. Estimated ejection fraction of 65%. 4. Aortic valve leaflets are trileaflet. 5. Mitral valve was normal. 6. Tricuspid valve was normal. 7. Pulmonic valve was normal. 8. Peak velocity across the aortic valve less than 2 m/sec. There is no aortic stenosis or regurgitation. There is trace tricuspid regurgitation. Peak velocity across the tricuspid valve less than 2 m/sec. There is mild mitral regurgitation. 9. Mild pulmonary regurgitation. 10. There is no pericardial effusion or obvious intracardiac mass or thrombus seen. There is grade 1 diastolic dysfunction. cc: MD Murtaza Paulson MD
[2019-06-17] MEDS: LEVAQUIN 750 MG/D5W 750 MG/150 ML IVPB IV SCH (21:08)
[2019-06-17] MEDS: VANCOMYCIN 1,600 MG in NS 250 ML IV SCH (22:20)
[2019-06-18] MEDS: DUONEB (A & A) INH SCH ×6 (03:52→23:00)
[2019-06-18] MEDS: SYMBICORT 160/4.5 MICROGM INHALER INH SCH (08:07)
[2019-06-18] MEDS: SINGULAIR PO SCH (08:29)
[2019-06-18] MEDS: ASPIRIN PO SCH (08:29)
[2019-06-18] MEDS: PRILOSEC PO SCH ×2 (08:29→22:34)
[2019-06-18] MEDS: LOVENOX SUBQ SCH (08:29)
[2019-06-18 08:42] LABS: AGAP 9; BUN 18 mg/dL (8-22); CALCIUM 8.9 mg/dL (8.8-10.2); CHLORIDE 102 mmol/L (98-107); COSMO 281; CREATININE 0.9 mg/dL (0.7-1.2); ESTIMATED GFR > 60; GLUCOSE 88 mg/dL (70-104); POTASSIUM 3.7 mmol/L (3.5-5.1); SODIUM 140 mmol/L (136-145); TCO2 29 mmol/L (25-35)
[2019-06-18 08:55] LABS: BASO# 0.02 X1000 (0.0-0.2); BASO% 0.2 % (0.0-0.8); EOS# 3.23 X1000 (0.0-0.7); EOS% 28.8 % (0.0-10.0); HEMATOCRIT 42.2 % (42.0-52.0); HEMOGLOBIN 13.1 g/dL (14.0-18.0); IMM GRAN# 0.03 X1000 (0.0-0.04); IMM GRAN% 0.3 % (0.0-0.5); LYMPH# 2.02 X1000 (1.2-3.4); MCH 29.9 PG (27-31); MCV 96.3 FL (81-99); MONO# 0.82 X1000 (0.11-0.59); MONO% 7.3 % (1.7-9.3); MPV 10.6 FL (7.4-10.4); NEUT# 5.09 X1000 (1.4-6.5); NEUT% 45.4 % (42.2-75.2); PLT 222 X1000 (130-400); RBC 4.38 XMIL (4.7-6.1); RDW 13.5 % (11.5-14.5); WBC 11.21 X1000 (4.8-10.8)
--- NOTE | 2019-06-18 09:18 | PROGRESS NOTE ---
DATE: 06/18/2019 SUBJECTIVE: Patient reports feeling fine. Denies any fever or chills. Still requiring oxygen at 3 liters/minute. OBJECTIVE: Vital Signs: Temperature is 98.0 degrees, heart rate 76 respiratory 14, blood pressure 121/77, O2 saturation 94% on 3 L nasal cannula. General Examination: This is a 63-year- old male, lying in bed in no acute distress. Cardiovascular exam: S1, S2 heard. No murmurs, gallops, or rubs. Regular rate and rhythm. Respiratory exam: Coarse breath sounds still, and rales noted in both pulmonary hdez, mostly at the bases. Basically unchanged in comparing with previous days. Patient is not using any accessory muscles or having work of breathing. Abdomen: Soft, nontender to palpation. Bowel sounds present. No organomegaly. Extremities: No clubbing, cyanosis, or edema. Peripheral pulses present in both legs. Neurological exam: Patient is alert and oriented x3. Moves 4 extremities. LABORATORY DATA: Pending at the time of dictation. ASSESSMENT AND PLAN: 1. Acute respiratory failure secondary to bilateral pneumonia. Patient is on Levaquin and vancomycin. Clinically, he is not feeling short of breath anymore, although he continues to require oxygen. At this point, we will continue with the same management. We will continue with breathing treatments as well every 4 hours. 2. Chest pain with elevation in troponins. I think the chest pain was secondary to this infection. Troponin has been elevated most likely due to mismatch supply-demand. Cardiology has evaluated this patient. Of course, they are not going to pursue any ischemic evaluation. Echocardiogram has been checked and is okay, so I think that condition is completely resolved. 3. Gastroesophageal reflux disease, stable. We will continue to monitor. 4. Disposition: My plan is to keep this patient in the hospital until Thursday. Continue with stromal broad-spectrum antibiotics. We will see on Thursday; if he is feeling fine, we can let him go. cc: Murtaza Bowen MD
[2019-06-18 10:28] LABS: EOS 32 % (1-10); LYMPHS 26 % (21-51); MONO 2 % (1-9); SEGS 40 % (42-75)
[2019-06-18] MEDS: VANCOMYCIN 1,600 MG in NS 250 ML IV SCH (16:38)
[2019-06-19] MEDS: LEVAQUIN 750 MG/D5W 750 MG/150 ML IVPB IV SCH (02:42)
[2019-06-19] MEDS: DUONEB (A & A) INH SCH ×6 (03:52→22:40)
[2019-06-19] MEDS: VANCOMYCIN 1,600 MG in NS 250 ML IV SCH ×2 (04:29→17:18)
[2019-06-19] MEDS: SYMBICORT 160/4.5 MICROGM INHALER INH SCH (07:41)
[2019-06-19] MEDS ORDERED: DUONEB (A & A) INH PRN (09:02)
--- NOTE | 2019-06-19 09:25 | Diag Imaging Result Doc PS360 ---
EXAM: CHEST-2 VIEWS - 06/19/2019 HISTORY: pna TECHNIQUE: Chest two views COMPARISON: 06/16/2019 FINDINGS: Heart size appears normal. There has been some decrease in lower lung interstitial infiltrates. There is possible tiny right pleural effusion. There is no evidence of pneumothorax. IMPRESSION: Some decrease in lower lung interstitial infiltrates. Electronically signed by Ortiz Denson 06/19/2019 9:22 AM
[2019-06-19] MEDS: SOLU-MEDROL IV SCH ×2 (09:35→20:50)
[2019-06-19] MEDS: SINGULAIR PO SCH (09:36)
[2019-06-19] MEDS: LOVENOX SUBQ SCH (09:36)
[2019-06-19] MEDS: ASPIRIN PO SCH (09:36)
[2019-06-19] MEDS: PRILOSEC PO SCH ×2 (09:36→20:50)
--- NOTE | 2019-06-19 10:09 | PROGRESS NOTE ---
DATE: 06/19/2019 SUBJECTIVE: Patient has been feeling okay. Yesterday, he had a lot of cough but apparently was not able to spit up this phlegm. Denies other complaints. OBJECTIVE: Vital Signs: Temperature 97.5 degrees, heart rate 80, respiratory rate 18, blood pressure 136/73, O2 saturation 95% on 2 L nasal cannula. General Examination: This is a 63-year- old, male, lying in bed, in no acute distress. Cardiovascular Examination: S1 and S2 heard. No murmurs, gallops, or rubs. Regular rate and rhythm. Respiratory Examination: Coarse breath sounds and rales noted in both pulmonary hdez, mostly noted at the bases. Patient is not using any accessory muscles or having work of breathing. Abdomen: Soft, nontender to palpation. Bowel sounds present. No organomegaly. Extremities: No clubbing, cyanosis, or edema. Peripheral pulses present in both legs. Neurological Examination: The patient is alert and oriented x3. Moves 4 extremities. Laboratory Data: There are no labs from today. ASSESSMENT AND PLAN: 1. Acute respiratory failure secondary to bilateral pneumonia. Patient is on Levaquin and vancomycin day home 3 for both medications. Clinically, he has been having more cough so at this point, we will add Mucomyst inhaled to his current treatment. We will continue with DuoNeb every 4 hours as scheduled. We will continue with the same antibiotic management. Because he reports that he had some cough associated to allergic reaction that has been treated with steroids, we will start him on Solu-Medrol 40 mg intravenously every 12 hours. 2. Chest pain with elevation of troponin. Chest pain has resolved. 3. Gastroesophageal reflux disease, stable. We will continue to monitor. 4. Disposition. We will continue with current management including Mucomyst on intravenous steroids. We will see how this patient does tomorrow. cc: Murtaza Bowen MD
[2019-06-19] MEDS: MUCOMYST 20% INH SCH ×2 (11:11→19:47)
[2019-06-20] MEDS: LEVAQUIN 750 MG/D5W 750 MG/150 ML IVPB IV SCH (01:40)
[2019-06-20] MEDS: VANCOMYCIN 1,600 MG in NS 250 ML IV SCH ×2 (03:17→17:38)
[2019-06-20] MEDS: DUONEB (A & A) INH SCH ×6 (03:41→22:41)
[2019-06-20 08:32] LABS: BASO# 0.01 X1000 (0.0-0.2); BASO% 0.1 % (0.0-0.8); EOS# 0.05 X1000 (0.0-0.7); EOS% 0.4 % (0.0-10.0); HEMATOCRIT 44.2 % (42.0-52.0); HEMOGLOBIN 13.8 g/dL (14.0-18.0); IMM GRAN# 0.04 X1000 (0.0-0.04); IMM GRAN% 0.4 % (0.0-0.5); LYMPH# 1.07 X1000 (1.2-3.4); LYMPH% 9.4 % (20.5-51.1); MCH 29.7 PG (27-31); MCHC 31.2 g/dL (33-37); MCV 95.1 FL (81-99); MONO# 0.79 X1000 (0.11-0.59); MONO% 6.9 % (1.7-9.3); NEUT# 9.46 X1000 (1.4-6.5); NEUT% 82.8 % (42.2-75.2); PLT 260 X1000 (130-400); RBC 4.65 XMIL (4.7-6.1); RDW 13.2 % (11.5-14.5); WBC 11.42 X1000 (4.8-10.8)
[2019-06-20 08:39] LABS: AGAP 11; BUN 15 mg/dL (8-22); CALCIUM 9.5 mg/dL (8.8-10.2); CHLORIDE 101 mmol/L (98-107); COSMO 279; CREATININE 0.9 mg/dL (0.7-1.2); ESTIMATED GFR > 60; GLUCOSE 111 mg/dL (70-104); POTASSIUM 4.5 mmol/L (3.5-5.1); SODIUM 139 mmol/L (136-145); TCO2 27 mmol/L (25-35)
[2019-06-20] MEDS: MUCOMYST 20% INH SCH ×2 (09:00→19:44)
[2019-06-20] MEDS: SYMBICORT 160/4.5 MICROGM INHALER INH SCH (09:44)
[2019-06-20] MEDS: SINGULAIR PO SCH (09:57)
[2019-06-20] MEDS: PRILOSEC PO SCH ×2 (09:57→20:10)
[2019-06-20] MEDS: ASPIRIN PO SCH (09:57)
[2019-06-20] MEDS: LOVENOX SUBQ SCH (09:58)
[2019-06-20] MEDS: SOLU-MEDROL IV SCH ×2 (09:58→20:10)
--- NOTE | 2019-06-20 19:11 | PROGRESS NOTE ---
DATE: 06/20/2019 SUBJECTIVE: Patient continues with productive cough of yellow sputum and some wheezing/shortness of breath. OBJECTIVE: Vital signs: Blood pressure 122/73, heart rate 86, oxygen saturation 92 to 94 percent. Neck: There is no significant jugular distention. Chest: Auscultation of the chest reveals scattered expiratory wheezes and rhonchi which have improved partially since admission. Cardiac: Regular rate and rhythm without appreciable murmur or gallop. There is no evidence of peripheral edema. LABORATORY DATA: Includes a white blood cell count 11.42, hematocrit 44.2, platelet count 260,000, hemoglobin 13.8. Sodium 139, potassium 4.5, chloride 101, carbon dioxide 27, BUN 15, creatinine 0.9. Glucose 111. Echocardiography indicates normal left ventricular ejection fraction and mild left ventricular hypertrophy. IMPRESSION: 1. Recent atypical chest pain, probably related to acute pulmonary infectious process, with radiographic studies suggesting bilateral pneumonia. 2. Mild nonspecific elevation in troponin. The patient has not had angina and electrocardiogram has been benign. Suspect likely noncardiac. Echocardiography shows normal left ventricular systolic function. RECOMMENDATIONS: 1. Continue to treat for acute respiratory infectious process as you are doing. 2. Once patient has improved sufficiently from a pulmonary standpoint, stress myocardial perfusion imaging to be pursued. This very well may need to be done as an outpatient to allow him to recover from his apparent acute pulmonary process. cc: Malcom Flaherty MD
[2019-06-20] MEDS ORDERED: LASIX PO ONE (19:22)
--- NOTE | 2019-06-20 19:50 | PROGRESS NOTE ---
DATE: 06/20/2019 INTERVAL HISTORY: Mr. High has been feeling better since this morning. He is still coughing up and spitting up sputum. Occasionally, there was a tinge of blood. We discussed about eosinophilic pneumonia, elevated IgE levels, possibility of Churg-Kristine syndrome. VITALS: Temperature 98.4 degrees, pulse 79, respiratory rate 17, blood pressure 134/82, saturating 95% on nasal cannula. PHYSICAL EXAMINATION: General: He is not in any acute distress. HEENT: Oral cavity is moist. Lungs: Air entry bilaterally equal. No wheeze or rhonchi. He does have inspiratory crackles in bilateral infrascapular region. Cardiovascular: S1, S2 normal. No murmur or gallop. Abdomen: Soft, nontender. Extremities: He has lower extremity rash affecting right lower extremity. Neurologic: He is alert and oriented x3. LABORATORY DATA: Suggestive of WBC of 11,000. His eosinophil count has been decreasing after steroid use. MICROBIOLOGY: No positive data so far. IMAGING: No new imaging. ASSESSMENT AND PLAN: 1. Acute hypoxic respiratory failure due to bilateral lung infiltrate. My suspicion of bacterial pneumonia is less at the moment and so my plan is to stop antibiotics after tomorrow's dose. Considering elevated eosinophilia, elevated immunoglobulin levels, history of chronic rhinosinusitis and possibly eczema and peripheral neuropathy, Churg-Kristine syndrome is a possibility, though previously his ANCA levels were unremarkable. Considering his bilateral ground-glass opacities, this is still a possibility. I will be start him on oral steroids starting tomorrow. He would need outpatient Pulmonology followup. Continue inhaled bronchodilators. 2. Chest pain with elevation of troponins on presentation. His chest pain has resolved. Echocardiogram had ejection fraction of 65% with grade 1 diastolic dysfunction. Cardiology team is planning possibly nuclear medicine stress test, most likely outpatient. 3. Chronic gastroesophageal reflux disease. Continue omeprazole. DISPOSITION: Monitor patient inside the hospital. Plan of care discussed with him. I will provide him ict teacher contact information at the time of discharge. He would likely need oral steroid until he sees a ict teacher outpatient. Plan of care discussed with him. His questions have been answered. cc: Rivas Morton MD
[2019-06-21] MEDS: DUONEB (A & A) INH SCH ×6 (03:35→23:22)
[2019-06-21] MEDS: SOLU-MEDROL IV SCH (04:24)
[2019-06-21] MEDS ORDERED: NS 1,000 ML IV SCH (05:30)
[2019-06-21 06:03] LABS: AGAP 10; ALB/GLOB RATIO 1.4; ALBUMIN 3.9 g/dL (3.5-5.0); ALKALINE PHOSPHATASE 55 U/L (32-122); BUN 20 mg/dL (8-22); CALCIUM 9.3 mg/dL (8.8-10.2); CHLORIDE 102 mmol/L (98-107); CK PROFILE 19 U/L (24-204); COSMO 284; CREATININE 0.9 mg/dL (0.7-1.2); ESTIMATED GFR > 60; GLUCOSE 128 mg/dL (70-104); GOT 17 U/L (10-34); GPT 21 U/L (10-44); POTASSIUM 4.4 mmol/L (3.5-5.1); SODIUM 140 mmol/L (136-145); TCO2 28 mmol/L (25-35); TOTAL BILIRUBIN 0.28 mg/dL (0.20-1.00); TOTAL PROTEIN 6.6 g/dL (6.3-8.3)
[2019-06-21 06:09] LABS: INR 1.04; PROTIME 13.7 Seconds (11.0-16.0)
[2019-06-21 06:10] LABS: PTT 25.2 Seconds (22.3-41.8)
--- NOTE | 2019-06-21 06:36 | Diag Imaging Result Doc PS360 ---
EXAM: CHEST-1 VIEW HISTORY: sepsis protocol TECHNIQUE: Single view COMPARISON: 06/19/2019 FINDINGS: Poor inspiratory effort. No cardiomegaly. No pulmonary edema. No pneumonia. No pleural effusions identified. IMPRESSION: No infiltrates Electronically signed by Denton Woodall 06/21/2019 6:34 AM
[2019-06-21 07:51] LABS: BASO# 0.01 X1000 (0.0-0.2); BASO% 0.1 % (0.0-0.8); EOS% 0.8 % (0.0-10.0); HEMATOCRIT 41.9 % (42.0-52.0); HEMOGLOBIN 13.4 g/dL (14.0-18.0); IMM GRAN# 0.08 X1000 (0.0-0.04); IMM GRAN% 0.7 % (0.0-0.5); LYMPH# 1.39 X1000 (1.2-3.4); LYMPH% 11.7 % (20.5-51.1); MCH 30.5 PG (27-31); MCV 95.4 FL (81-99); MONO# 0.96 X1000 (0.11-0.59); MONO% 8.1 % (1.7-9.3); MPV 10.3 FL (7.4-10.4); NEUT# 9.38 X1000 (1.4-6.5); NEUT% 78.6 % (42.2-75.2); PLT 256 X1000 (130-400); RBC 4.39 XMIL (4.7-6.1); RDW 13.4 % (11.5-14.5); WBC 11.92 X1000 (4.8-10.8)
[2019-06-21] MEDS: MUCOMYST 20% INH SCH ×2 (08:04→19:40)
[2019-06-21] MEDS: SYMBICORT 160/4.5 MICROGM INHALER INH SCH (08:05)
[2019-06-21] MEDS: ASPIRIN PO SCH (08:32)
[2019-06-21] MEDS: SINGULAIR PO SCH (08:32)
[2019-06-21] MEDS: PRILOSEC PO SCH ×2 (08:32→21:27)
[2019-06-21] MEDS: PREDNISONE PO SCH (08:32)
[2019-06-21 12:24] LABS: URINE SOURCE CLEAN CATCH
[2019-06-21 12:30] LABS: BILIRUBIN URINE NEGATIVE (NEGATIVE); BLOOD URINE NEGATIVE (NEGATIVE); COLOR YELLOW; GLUCOSE URINE NEGATIVE (NEGATIVE); KETONE URINE NEGATIVE (NEGATIVE); LEUKOCYTES URINE NEGATIVE (NEGATIVE); NITRITE URINE NEGATIVE (NEGATIVE); PROTEIN URINE NEGATIVE (NEGATIVE); SP GRAVITY URINE 1.017; TURBIDITY URINE CLEAR (CLEAR); UROBILINOGEN URINE NORMAL (NORMAL)
[2019-06-21 12:32] LABS: UR EPITHELIAL CELLS <10 /HPF (<10); URINE BACTERIA NEGATIVE /HPF; URINE RBC <10 /HPF (<10); URINE WBC <10 /HPF (<10)
--- NOTE | 2019-06-21 18:38 | PROGRESS NOTE ---
DATE: 06/21/2019 SUBJECTIVE: The patient is resting comfortably in bed. He complains of nasal and upper respiratory congestion. He recently had sinus surgery. OBJECTIVE: Vital Signs: Temperature 97.9 degrees, blood pressure 130/75, heart rate 84, respirations 13, O2 saturation is 93% on 2 L nasal cannula. Intake 1.2 L, output 1.5 L. General: This is a elderly male sitting in bed in no acute distress. Heart: S1, S2 normal. Regular rate and rhythm. Lungs: Equal air entry bilaterally. No wheezing. No rales. Abdomen: Positive bowel sounds. Soft, nontender, nondistended. Extremities: No edema. No cyanosis. Neurologic: The patient is alert and oriented x3. LABS: White blood cell count 11, hemoglobin 13, hematocrit 41, platelets 256,000. INR 1. Sodium 140, potassium 4.4, chloride 102, CO2 28, BUN 20, creatinine 0.9, glucose 128. Troponin 106. Lactate 1.2. UA negative. IgE 1785. IMAGING: Chest x-ray shows no infiltrates. ASSESSMENT AND PLAN: 1. Acute hypoxemic respiratory failure with bilateral lung infiltrates plus persistent eosinophilia. The patient reports that he followed up with Dr. Mcguire upon discharge back in March and had sinus surgery. However, he has not followed up with a quality control expert yet. The patient's IgE level is improved in comparison to the IgE level done in March. The ANCA screen and connective tissue cascade are currently pending. The patient is currently on steroid therapy. The patient is scheduled to follow up with Dr. Butler on 07/05/2019 at 10:30 a.m. is working on getting the patient started on Dupixent. 2. Recurrent rhinosinusitis status post surgery. Aware. The patient is scheduled to follow up with Dr. Mcguire in the next several days. 3. Eosinophilia. Resolved. The patient is currently on steroid therapy. 4. Gastroesophageal reflux disease. Continue on omeprazole. 5. Diastolic dysfunction with chest pain. The patient will follow up as outpatient for further cardiac testing as per the asphalt paving foreman. cc: Drea Glover MD MTDD
[2019-06-22] MEDS: DUONEB (A & A) INH SCH ×6 (03:38→22:37)
[2019-06-22] MEDS: SYMBICORT 160/4.5 MICROGM INHALER INH SCH (08:09)
[2019-06-22] MEDS: MUCOMYST 20% INH SCH ×2 (08:09→19:31)
[2019-06-22] MEDS: PRILOSEC PO SCH ×2 (08:22→21:26)
[2019-06-22] MEDS: ASPIRIN PO SCH (08:22)
[2019-06-22] MEDS: PREDNISONE PO SCH (08:22)
[2019-06-22] MEDS: SINGULAIR PO SCH (08:22)
[2019-06-22 08:32] LABS: BASO# 0.03 X1000 (0.0-0.2); BASO% 0.3 % (0.0-0.8); EOS# 0.81 X1000 (0.0-0.7); EOS% 6.9 % (0.0-10.0); HEMATOCRIT 42.4 % (42.0-52.0); HEMOGLOBIN 13.4 g/dL (14.0-18.0); IMM GRAN# 0.09 X1000 (0.0-0.04); IMM GRAN% 0.8 % (0.0-0.5); LYMPH# 2.29 X1000 (1.2-3.4); LYMPH% 19.6 % (20.5-51.1); MCH 30.1 PG (27-31); MCHC 31.6 g/dL (33-37); MCV 95.3 FL (81-99); MONO# 1.02 X1000 (0.11-0.59); MONO% 8.7 % (1.7-9.3); NEUT# 7.45 X1000 (1.4-6.5); NEUT% 63.7 % (42.2-75.2); PLT 245 X1000 (130-400); RBC 4.45 XMIL (4.7-6.1); RDW 13.6 % (11.5-14.5); WBC 11.69 X1000 (4.8-10.8)
[2019-06-22 08:57] LABS: AGAP 9; ALB/GLOB RATIO 1.3; ALBUMIN 3.7 g/dL (3.5-5.0); ALKALINE PHOSPHATASE 49 U/L (32-122); BUN 21 mg/dL (8-22); CHLORIDE 101 mmol/L (98-107); COSMO 282; CREATININE 0.8 mg/dL (0.7-1.2); ESTIMATED GFR > 60; GLUCOSE 83 mg/dL (70-104); GOT 17 U/L (10-34); GPT 23 U/L (10-44); POTASSIUM 3.9 mmol/L (3.5-5.1); SODIUM 140 mmol/L (136-145); TCO2 30 mmol/L (25-35); TOTAL BILIRUBIN 0.37 mg/dL (0.20-1.00); TOTAL PROTEIN 6.5 g/dL (6.3-8.3)
[2019-06-22 14:58] LABS: ANTINEUTROPHIL CYTOPLASMIC AB SEE COMMENTS
--- NOTE | 2019-06-22 17:31 | PROGRESS NOTE ---
DATE: 06/22/2019 SUBJECTIVE: The patient states that he feels a little bit better today. He still complains of nasal congestion and occasional cough. OBJECTIVE: Vital Signs: Temperature 97.4 degrees, blood pressure 110/70, heart rate 83, respirations 20, O2 saturation 91% on 2 L nasal cannula. General: This is a chronically ill- appearing elderly male sitting up in bed in no acute distress. Heart: S1, S2 normal. Regular rate and rhythm. Lungs: Equal air entry bilaterally. No wheezing. No rales. Abdomen: Positive bowel sounds. Soft, nontender, nondistended. Extremities: No edema, no cyanosis. Neurologic: The patient is alert and oriented x3. LABS: White blood cell count 11, hemoglobin 13, hematocrit 42, platelets 245,000. Sodium 140, potassium 3.9, chloride 101, CO2 30, BUN 21, creatinine 0.8, glucose 83. ASSESSMENT AND PLAN: 1. Acute hypoxemic respiratory failure with bilateral lung infiltrates, plus eosinophilia. The ANCA vasculitis panel was noted to be negative. The YAA is currently pending. The patient continues to have an elevated IgE. Continue with steroid therapy. We will try and wean the patient off of supplemental oxygen. The chest x-ray from yesterday shows no infiltrate. The patient is scheduled to follow up with Dr. Butler on 07/05/2019. 2. Recurrent rhinosinusitis, status post surgery. Aware. According to the patient, Dr. Mcguire is working on getting the patient started on Dupixent. The patient is scheduled to follow up with Dr. Mcguire in the next several days. 3. Gastroesophageal reflux disease. Continue on omeprazole. 4. Diastolic dysfunction with intermittent chest pain. Stable. The patient will follow up with the road test examiner as outpatient once his pulmonary issues have resolved. cc: Drea Glover MD
--- NOTE | 2019-06-23 00:18 | PULMONOLOGY CONSULTATION ---
DATE: 06/22/2019 REQUESTING CLINICIAN: Dr. Glover. REASON FOR CONSULTATION: Eosinophilia with elevated IgE. HISTORY OF PRESENT ILLNESS: Mr. High is a 63-year-old white male who was admitted to the hospital in March with hypereosinophilia, pulmonary infiltrates and sinusitis. The IgE level was markedly elevated at greater than 3000. He was initiated on steroids and antibiotics and his eosinophilia resolved. The patient was being followed by Dr. Cullen during that hospitalization but had previously been seen by both Dr. Cullen and Dr. Jae Meyer in [place]. He was given option to follow up with this practitioner, as I was covering for Dr. Cullen. He did not follow up with this practitioner. He reports he was given steroids and has been evaluated by Dr. Fito Mcguire for possible Dupixent injections. This was noted back in March. He did undergo sinus surgery and drainage per Dr. Mcguire. He presented to the emergency room 06/16/2019 with shortness of breath, increased cough and pleuritic chest pain. His IgE was elevated at 1785. His initial eosinophil count was 25,000. The patient denies history of asthma as a child, but does report sinus allergies all of his life. He reported he had hives for over 7 years and underwent multiple skin testing, but only mold was identified. He did undergo allergy injections for 3 years, which was discontinued due to lack of efficacy. PAST MEDICAL HISTORY: 1. Recurrent sinusitis, as per above. 2. Long history of allergy disease. 3. History of hives. 4. Intermittent wheezing. 5. Gastroesophageal reflux disease. 6. Status post cholecystectomy. SOCIAL HISTORY: No tobacco or alcohol use. FAMILY HISTORY: Noncontributory to current presentation. PHYSICAL EXAMINATION: General: Reveals a well-developed, well-nourished male resting comfortably and in no distress. Vital signs: Blood pressure 123/77, heart rate 77, respiratory rate 21, oxygen saturation 95%. HEENT: Pupils are equal and reactive. Oropharynx appears clear. Neck: Supple. Chest: Reveals rhonchi and wheezing on forced exhalation. Cardiac: S1, S2. Abdomen: Soft. Extremities: Without edema. LABORATORIES: CT scan of the thorax on presentation revealed patchy infiltrates. Echocardiogram revealed good LV function. White blood count today is 11.69, hemoglobin 13.4, platelet count 245,000, eosinophil count 6.9%. IMPRESSION: A 63-year-old with 1. Pulmonary infiltrates. 2. Sinusitis. 3. Elevated IgE level. 4. Hypereosinophilia. 5. Asthma. DISCUSSION: A 63-year-old with problems outlined above. The patient has history of hives, allergies, sinusitis, elevated IgE, and hypereosinophilia. The patient has asthma. He does have pulmonary infiltrates which may be related to his hypereosinophilia. He has no other signs of organ dysfunction. LV function appears to be normal. He does need followup. It is not clear who he followed up with after his March visit. RECOMMENDATIONS: 1. Initiate steroids. Would not discharge on steroid dose less than 30 mg per day. 2. The patient will need follow-up as an outpatient. 3. Dupixent being considered by ENT. 4. Sputum collection if can be obtained. cc: MD Drea Lara MD
[2019-06-23] MEDS: DUONEB (A & A) INH SCH ×6 (03:01→23:49)
[2019-06-23 05:11] LABS: ALLEN TEST YES; BLOOD TYPE ARTERIAL; O2(CT) 24.5 mL/dL (15.0-23.0); O2HB 91.2 % (95.0-99.0); PCO2(98.6) 50 mmHg (35-45); PO2(98.6) 62 mmHg (60-100); SAMPLE BLOOD; SAO2 93.4 % (95.0-100.0); THB 19.2 g/dL (11.5-17.4); pH(98.6) 7.38 (7.35-7.45)
[2019-06-23 05:12] LABS: MODALITY CANNULA
--- NOTE | 2019-06-23 07:49 | Diag Imaging Result Doc PS360 ---
EXAM: CHEST-2 VIEWS 06/23/2019 HISTORY: infiltrates TECHNIQUE: PA and lateral chest COMMENT: There are platelike atelectatic changes present in the right middle and lower lobe. The inspiration is slightly better than on 06/21/2019. Otherwise are has been no significant change. IMPRESSION: Atelectasis versus pneumonia in the right base. Electronically signed by Ed Winter 06/23/2019 7:47 AM
[2019-06-23] MEDS: MUCOMYST 20% INH SCH ×2 (08:43→20:16)
[2019-06-23] MEDS: SYMBICORT 160/4.5 MICROGM INHALER INH SCH (08:44)
[2019-06-23 08:46] LABS: BASO# 0.05 X1000 (0.0-0.2); BASO% 0.5 % (0.0-0.8); EOS# 1.14 X1000 (0.0-0.7); HEMATOCRIT 44.3 % (42.0-52.0); IMM GRAN# 0.07 X1000 (0.0-0.04); IMM GRAN% 0.7 % (0.0-0.5); LYMPH# 2.73 X1000 (1.2-3.4); LYMPH% 26.4 % (20.5-51.1); MCHC 31.6 g/dL (33-37); MCV 94.9 FL (81-99); MONO# 0.88 X1000 (0.11-0.59); MONO% 8.5 % (1.7-9.3); NEUT# 5.47 X1000 (1.4-6.5); NEUT% 52.9 % (42.2-75.2); PLT 265 X1000 (130-400); RBC 4.67 XMIL (4.7-6.1); RDW 13.6 % (11.5-14.5); WBC 10.34 X1000 (4.8-10.8)
[2019-06-23] MEDS: PRILOSEC PO SCH ×2 (09:22→20:35)
[2019-06-23] MEDS: SINGULAIR PO SCH (09:23)
[2019-06-23] MEDS: PREDNISONE PO SCH (09:23)
[2019-06-23] MEDS: ASPIRIN PO SCH (09:23)
--- NOTE | 2019-06-23 20:27 | PROGRESS NOTE ---
DATE: 06/23/2019 SUBJECTIVE: The patient is resting comfortably. He states that he feels a lot better. He qualified for home oxygen. OBJECTIVE: Vital Signs: Temperature 99.4 degrees, blood pressure 127/78, heart rate 92, respirations 16, O2 saturation 94% on 2 L nasal cannula. General: This is a chronically ill- appearing elderly male sitting up in bed in no acute distress. Heart: S1, S2 normal. Regular rate and rhythm. Lungs: Clear to auscultation bilaterally. Abdomen: Positive bowel sounds. Soft, nontender, nondistended. Extremities: No edema, no cyanosis. Neurologic: The patient is alert and oriented x3. LABS: White blood cell count 10, hemoglobin 14, hematocrit 44, platelets 265,000. ASSESSMENT AND PLAN: 1. Acute hypoxemic respiratory failure with lung infiltrates and a recurrent eosinophilia. The eosinophilia appears to have resolved. Will continue with prednisone. The patient will follow up with Dr. Kothari and Dr. Mcguire and Dr. Butler as outpatient upon discharge. 2. Recurrent rhinosinusitis, status post surgery. The patient will follow up with Dr. Mcguire upon discharge to discuss starting Dupixent. 3. Diastolic dysfunction with intermittent chest pain. Stable. The patient will follow up with Cardiology as outpatient for eventual stress test. 4. Gastroesophageal reflux disease. Continue on omeprazole. 5. Disposition. We will plan to discharge the patient home tomorrow. cc: Drea Glover MD
--- NOTE | 2019-06-24 02:42 | PULMONOLOGY PROGRESS NOTE ---
DATE: 06/23/2019 SUBJECTIVE: The patient is awake and alert. He continues to have some cough. OBJECTIVE: Vital Signs: Blood pressure 110/81, heart rate 93, respiratory rate 18, oxygen saturation 97%. HEENT: Pupils are equal and reactive. Oropharynx appears clear. Neck: Supple. Chest: Reveals scattered wheezing and rhonchi bilaterally. Cardiac: S1-S2. Abdomen: Soft. Extremities: Without edema. LABORATORIES: Chest x-ray reveals better inspiration with increased markings at the right lung base. White blood count 10.34, hemoglobin 14.0, platelet count 265,000. Eosinophil count has increased to 880, which is 11%. IMPRESSION: A 63-year-old with: 1. Asthma. 2. Hypereosinophilia. 3. Elevated IgE. 4. Pulmonary infiltrates. DISCUSSION: A 63-year-old with problems outlined above. Asthma is suspected. He also has had a long history of hives. It would be expected that 40 mg of prednisone would suppress his eosinophilia, but it continues to climb. He may need a larger dose or he may need lab work sent for steroid resistant eosinophil suppression. PLAN: 1. Follow up CBC tomorrow. Although initial recommendation suggested lower dose of steroids, the increasing eosinophil count will make this difficult. 2. Consider additional lab work if eosinophilia remains. 3. The patient may need another agent to suppress his eosinophils. cc: Jordan Kothari MD
[2019-06-24] MEDS: DUONEB (A & A) INH SCH ×2 (03:29→08:01)
[2019-06-24] MEDS: MUCOMYST 20% INH SCH (08:01)
[2019-06-24 08:46] LABS: BASO# 0.05 X1000 (0.0-0.2); BASO% 0.4 % (0.0-0.8); EOS# 0.95 X1000 (0.0-0.7); EOS% 8.3 % (0.0-10.0); HEMATOCRIT 42.6 % (42.0-52.0); HEMOGLOBIN 13.9 g/dL (14.0-18.0); IMM GRAN# 0.08 X1000 (0.0-0.04); IMM GRAN% 0.7 % (0.0-0.5); LYMPH% 22.8 % (20.5-51.1); MCH 30.8 PG (27-31); MCHC 32.6 g/dL (33-37); MCV 94.5 FL (81-99); MONO# 1.03 X1000 (0.11-0.59); MONO% 9.1 % (1.7-9.3); MPV 10.3 FL (7.4-10.4); NEUT# 6.67 X1000 (1.4-6.5); NEUT% 58.7 % (42.2-75.2); PLT 274 X1000 (130-400); RBC 4.51 XMIL (4.7-6.1); RDW 13.4 % (11.5-14.5); WBC 11.38 X1000 (4.8-10.8)
[2019-06-24] MEDS: ASPIRIN PO SCH (09:32)
[2019-06-24] MEDS: SINGULAIR PO SCH (09:32)
[2019-06-24] MEDS: PREDNISONE PO SCH (09:32)
[2019-06-24] MEDS: PRILOSEC PO SCH (09:32)
[2019-06-24 11:39] VITALS: BP 121/73
--- NOTE | 2019-07-03 16:57 | DISCHARGE SUMMARY ---
ADMISSION DATE: 06/16/2019 DISCHARGE DATE: 06/24/2019 FINAL DISCHARGE DIAGNOSES: 1. Acute hypoxemic respiratory failure. 2. Pulmonary infiltrates with recurrent eosinophilia. 3. Asthma. 4. Recurrent rhinosinusitis status post sinus surgery. 5. Diastolic dysfunction with intermittent chest pain. 6. Gastroesophageal reflux disease. CONSULTATIONS: 1. Pulmonary consultation with Dr. Kothari. 2. Cardiology consultation with Dr. Flaherty. IMAGIN. Portable chest x-ray performed on 06/16/2019 which revealed ill-defined perihilar and lower lung zone infiltrates. 2. Pulmonary arteriogram performed on 07/15/2019 which revealed extensive patchy multifocal infiltrates suggesting a viral pneumonia or pulmonary edema. 3. Echocardiogram performed on 06/17/2019 which revealed an EF of 65% with grade 1 diastolic dysfunction. 4. Portable chest x-ray performed on 06/21/2019 which revealed no infiltrates. HOSPITAL COURSE: Mr. High is a 63-year-old male with a history of recurrent rhinosinusitis status post sinus surgery, asthma, and recurrent eosinophilia who presented to the ER with a chief complaint of increasing shortness of breath and cough. On admission a chest x-ray was done that revealed ill-defined infiltrates that were concerning for pneumonia. The patient was admitted to the hospitalist service. Blood cultures were obtained as well as sputum culture and a flu swab were performed. The patient was then started on antibiotics. On admission the patient was noted to have an eosinophilia of 25%. Pulmonary Medicine was consulted for further assistance with management. There was concern that the patient may have been suffering from an autoimmune disorder. Steroid therapy with prednisone was initiated, and the patient's eosinophilia improved. Also over the course of the hospital stay, the patient's respiratory status improved. The antibiotic therapy was discontinued once it was noted that the chest x-ray was free of infiltrates. The patient was advised to follow up with Dr. Mcguire as scheduled. The patient reported that Dr. Mcguire was trying to set the patient up with [facility]. While hospitalized the patient was seen by the screw eye assembler who recommended an outpatient stress test once the pulmonary issues were resolved. The patient continued to improve clinically and was cleared for discharge home. DISCHARGE MEDICATIONS: 1. Prednisone 40 mg oral daily. 2. Symbicort 2 puffs inhaled daily. 3. Omeprazole 40 mg p.o. twice a day. 4. Singulair 10 mg oral daily. DISCHARGE DIET: Low-sodium low-cholesterol diet. ACTIVITY: As tolerated. FOLLOW-UP INSTRUCTIONS: The patient is scheduled to follow up with Dr. Butler on 07/05/2019 at 10:30 a.m. The patient will need to follow up with Dr. Mcguire as scheduled by his clinic. The patient will need to follow up with Dr. Kothari in 2 weeks. The patient will need to follow up with Dr. Flaehrty in 1 month. cc: MD Zeus Park MD
== END 2019-06-24 14:40 | disposition home or self-care (01) | DRG 196 ==
LOC: P.ED 20:19 → 2N 23:42 → SUATTDRO 23:42 → 3N 06-17 11:30
PROVIDERS: ATTEND Internal Medicine